=== PATIENT | male | born 1960 | race Caucasian/White ===

== ENCOUNTER 2016-09-14 11:14 | Inpatient (IN) ==
[2016-09-14] MEDS ORDERED: Ipratropium/Albuterol Neb 3 ML IH ONE (11:29)
[2016-09-14] MEDS ORDERED: 0.9 % Sodium Chloride 1,000 ML IVC SCH (11:30)
--- NOTE | 2016-09-14 11:40 | Emergency Department Note ---
Disposition Clinical Impression: Hypoxia, Pulmonary nodule, Bronchitis Chest pain Qualifiers: Chest pain type: unspecified Qualified Code(s): R07.9 - Chest pain, unspecified Disposition: Admitted As Inpatient Condition: Fair General Adult HPI - General Chief complaint: ED Chest Pain Stated complaint: CP/APRIL 72% o2 Time Seen by Provider: 09/14/16 11:16 Source: patient Mode of arrival: ambulatory Limitations: no limitations Nursing Notes Reviewed: Yes Vital Signs Reviewed: Yes - History of Present Illness HPI Narrative: 55-year-old male history of COPD, hypertension, presents for evaluation of chest pain shortness of breath. Patient states that he is on 4 L nasal cannula at home nocturnal. States he does not use oxygen while at work. Does travel to [place] as his daily commute. Note that symptoms started in the past 24 hours. Reports some nausea but no vomiting. Reports constipation or diarrhea. Denies any fevers. Does note a chronic productive cough with no change. Does describe upper abdominal/chest pain. Does have a history of pancreatitis because the pain is different than prior episodes. Patient denies history of alcohol. She has had his colon removed. Denies history of DVTs or PEs. Denies any recent surgeries. Denies history of heart attacks. Denies any recent hospitalizations within the past 3 months. Pain Scale: 7 - Related Data Home Medications Medication Instructions Recorded Confirmed Albuterol Sulfate [Albuterol 2 puff IH Q4HR PRN 07/09/15 09/14/16 Inhaler] Aspirin [Adult Low Dose Aspirin EC] 81 mg PO DAILY 07/09/15 09/14/16 Furosemide [Lasix] 20 mg PO DAILY PRN 07/09/15 09/14/16 Lisinopril [Zestril] 10 mg PO DAILY 07/09/15 09/14/16 Multivit-Min/FA/Lycopen/Lutein 1 tab PO DAILY 07/09/15 09/14/16 [Centrum Silver Tablet] Omeprazole [PriLOSEC] 20 mg PO DAILY 07/09/15 09/14/16 hydroCHLOROthiazide 25 mg PO DAILY 07/09/15 09/14/16 [Hydrochlorothiazide] BuPROPion SR (12 HR) [Wellbutrin 150 mg PO BID 04/05/16 09/14/16 SR] Fluticasone/Salmeterol [Advair 1 each IH BID 04/05/16 09/14/16 250-50 Diskus] Ondansetron HCl [Zofran] 4 mg PO BID PRN MDD qty 14, 7 day 04/05/16 09/14/16 supply Oxygen 2 l NS CONT 04/05/16 09/14/16 Allergies Allergy/AdvReac Type Severity Reaction Status Date / Time ciprofloxacin [From Cipro] Allergy See Verified 07/09/15 10:32 Comments All systems ED: reviewed and negative except as stated. Constitutional: Reports: as per HPI. Denies: fever Eyes: Reports: as per HPI ENT ED: Reports: as per HPI Cardiovascular: Reports: as per HPI, chest pain Respiratory: Reports: as per HPI, cough, dyspnea Gastrointestinal: Reports: as per HPI, abdominal pain, nausea, constipation. Denies: vomiting Genitourinary: Reports: as per HPI Musculoskeletal: Reports: as per HPI Integumentary: Reports: as per HPI Neurological: Reports: as per HPI Psychiatric: Reports: as per HPI Endocrine: Reports: as per HPI Hematological/Lymphatic: Reports: as per HPI Past Medical History - Past Medical History Attestation: Yes The following information was validated with the patient. Medical history: Reports: COPD, hypertension Surgical history: Reports: cholecystectomy Psychiatric history: Reports: no psych history - Social History Smoking Status: Current every day smoker Smokeless Tobacco Status: No Alcohol use: Reports: occasionally Drug use: Reports: none Physical Exam - General Limitations: no limitations General appearance: alert, in no apparent distress - Head Head exam: atraumatic, normocephalic, normal inspection - Eye Eye exam: Present: normal appearance, EOMI. Absent: scleral icterus - ENT ENT exam: normal exam, mucous membranes moist - Neck Neck exam: Present: normal inspection, trachea midline - Chest Chest inspection: Present: normal inspection, symmetric chest wall rise - Respiratory Respiratory exam: Present: wheezes (Bibasilar expiratory, with scattered rhonchi ), accessory muscle use, prolonged expiratory phase. Absent: respiratory distress - Cardiovascular Cardiovascular exam: Present: normal rhythm, tachycardia - Abdominal Exam Abdominal exam: Present: soft, Non-Tender, distention, other (Healed midline scar). Absent: guarding, rebound - Extremities Exam Extremities exam: Present: normal inspection. Absent: pedal edema - Back Exam Back exam: Present: normal inspection. Absent: CVA tenderness (R), CVA tenderness (L) - Neurological Exam Neurological exam: Present: alert, oriented X3 - Skin Skin exam: Present: warm, dry, intact, normal color Course Course Narrative: Patient seen and examined. Patient was noted to be hypoxic with room air sat of 72%. Patient remained hypoxic on 4 L with 88-89%. Patient get a cardiopulmonary evaluation including a chest x-ray, nebs, EKG troponin as well as a d-dimer as the patient is felt to be low risk for [place]. Disposition likely admission. - Reevaluation(s) Reevaluation #1: Patient seen and examined. Patient continues no difficulty in breathing. Patient continues no pain. Is that the pain is worse with leaning forward. Time: 12:42 Reevaluation #2: Patient states that the nitroglycerin did help with his pain. Patient's resting comfortably. Discussed plan with patient bedside. Time: 14:12 Reevaluation #3: Patient is resting comfortably. Spoke with hospitalist regarding admission. Patient will be admitted for further cardiopulmonary monitoring. Patient's 93% on 4 L nasal cannula. Normotensive. Time: 16:03 Vital Signs Temperature 98.7 F 09/14/16 11:26 Pulse Rate 107 09/14/16 11:26 Respiratory Rate 22 09/14/16 11:26 Blood Pressure 149/88 09/14/16 11:26 O2 Sat by Pulse Oximetry 89 09/14/16 11:26 Temperature 99.4 F 09/14/16 18:29 Pulse Rate 106 09/14/16 18:20 Respiratory Rate 20 09/14/16 18:20 Blood Pressure 144/74 09/14/16 18:20 O2 Sat by Pulse Oximetry 90 09/14/16 19:01 Oxygen Delivery Oxygen Delivery Nasal Cannula Medical Decision Making - [facility] Narrative Medical decision making narrative: 55-year-old gentleman presents for evaluation of chest pain short of breath. Patient was noted to be hypoxic. Patient has had an extensive history of COPD. Patient is typically on 4 L nocturnally. Patient was found to be hypoxic. Patient did not improve with initial supplementation. Patient received DuoNeb' s 2. Patient also had a cardiopulmonary evaluation with an EKG which showed no acute changes. Negative troponin. Patient is also complaining of chest pain. Patient's chest pain relieved with nitroglycerin. Patient does not have any recent cardiopulmonary testing. Patient also had a CTA of the chest which showed pulmonary nodules but no acute abnormalities. Possibly pulmonary edema versus bronchitis. Patient also has a mild elevation in white count. Patient was given by mouth Levaquin to cover for any bronchitis symptoms given the severity of his hypoxia. Patient likely has some element of pulmonary hypertension as he states that he does not use oxygen during the day for his job. Patient would likely benefit from inpatient admission with cardiopulmonary evaluation stress testing and echo. Patient is agreeable to plan of care. - Lab Data Lab results reviewed: Yes I reviewed the patient's lab results. Result diagrams: 09/14/16 11:56 09/14/16 11:56 Lab Results 09/14/16 09/14/16 09/14/16 Range/Units 11:56 11:56 11:56 WBC 13.2 H (4.3-11.1) K/mcL RBC 5.07 (4.19-5.50) M/mcL Hgb 13.4 (12.9-16.9) g/dL Hct 45.3 (37.5-50.1) % MCV 89.3 (83.0-100.0) fL MCH 26.4 L (28.0-33.3) pg MCHC 29.6 L (31.6-35.5) g/dL RDW 14.3 (11.5-14.5) % Plt Count 199 (140-400) K/mcL MPV 9.2 L (9.4-12.4) fL Immature Gran % 0.6 (0-4) % Seg Neutrophils % 83.3 % Lymphocytes % 9.2 % Monocytes % 5.5 % Eosinophils % 1.1 % Basophils % 0.3 % Neutrophils # 11.0 H (1.6-8.9) K/mcL Lymphocytes # 1.2 (0.6-4.6) K/mcL Monocytes # 0.7 (0.0-1.3) K/mcL Eosinophils # 0.2 (0.0-0.6) K/mcL Basophils # 0.0 (0.0-0.2) K/mcL D-Dimer (0-500) ng/mLFEU VBG pH (7.32-7.42) pH Units VBG pCO2 (41-51) mmHg VBG pO2 (25-40) mmHg VBG HCO3 (21-27) mEq/L Sodium 137 (136-145) mEq/L Potassium 4.2 (3.5-4.5) mEq/L Chloride 93 L (98-109) mEq/L Carbon Dioxide 39 H (19-29) mEq/L BUN 14 (8-26) mg/dL Creatinine 0.82 (0.72-1.25) mg/dL Est GFR ( Amer) > 60 (> 60) Est GFR (Non-Af Amer) > 60 (> 60) BUN/Creatinine Ratio 17 (6-26) Glucose 225 H (70-99) mg/dL Calculated Osmolality 292 (280-300) Calcium 8.5 L (8.6-10.8) mg/dL Troponin I 0.02 (0-0.03) ng/mL Lipase 55 (8-78) Units/L 09/14/16 09/14/16 Range/Units 11:56 11:56 WBC (4.3-11.1) K/mcL RBC (4.19-5.50) M/mcL Hgb (12.9-16.9) g/dL Hct (37.5-50.1) % MCV (83.0-100.0) fL MCH (28.0-33.3) pg MCHC (31.6-35.5) g/dL RDW (11.5-14.5) % Plt Count (140-400) K/mcL MPV (9.4-12.4) fL Immature Gran % (0-4) % Seg Neutrophils % % Lymphocytes % % Monocytes % % Eosinophils % % Basophils % % Neutrophils # (1.6-8.9) K/mcL Lymphocytes # (0.6-4.6) K/mcL Monocytes # (0.0-1.3) K/mcL Eosinophils # (0.0-0.6) K/mcL Basophils # (0.0-0.2) K/mcL D-Dimer 1571 H (0-500) ng/mLFEU VBG pH 7.35 (7.32-7.42) pH Units VBG pCO2 72 H (41-51) mmHg VBG pO2 66 H (25-40) mmHg VBG HCO3 39.7 H (21-27) mEq/L Sodium (136-145) mEq/L Potassium (3.5-4.5) mEq/L Chloride (98-109) mEq/L Carbon Dioxide (19-29) mEq/L BUN (8-26) mg/dL Creatinine (0.72-1.25) mg/dL Est GFR ( Amer) (> 60) Est GFR (Non-Af Amer) (> 60) BUN/Creatinine Ratio (6-26) Glucose (70-99) mg/dL Calculated Osmolality (280-300) Calcium (8.6-10.8) mg/dL Troponin I (0-0.03) ng/mL Lipase (8-78) Units/L - Radiology Data Radiology results reviewed: Yes I reviewed the patient's radiology results. Chest X-Ray 09/14/16 11:30 IMPRESSION: No acute cardiopulmonary disease Cardiomegaly without edema D/ / Az Ott MD / Az Ott MD Interpreting Provider: Az Ott MD Chest CTA 09/14/16 12:39 IMPRESSION: 1. No findings of pulmonary embolism. 2. 0.5 cm x 0.3 cm solid and groundglass nodules in the right lung. Consider follow-up chest CT in 1 year per the Fleischner Society recommendations for solid pulmonary nodules, as upper lobe location of the solid nodule is considered to be of increased risk. No specific follow-up of the groundglass nodule is recommended. 3. Minimal central bronchial wall thickening potentially related to pulmonary vascular congestion or bronchitis. 4. Mild centrilobular and minimal paraseptal emphysema. 5. Additional incidental findings as above. RECOMMENDATIONS: Fleischner Society guidelines for follow-up and management of incidentally detected pulmonary nodules: Single Solid Nodule: Nodule size less than 6 mm In a high-risk patient, optional CT at 12 months. Radiology 2017 http://pubs.rsna.org/doi/full/10.1148/radiol.[email or web address] Fleischner Society guidelines for follow-up and management of incidentally detected subsolid pulmonary nodules: Solitary ground glass nodule < 6 mm - No routine follow-up. Radiology 2017 http://pubs.rsna.org/doi/full/10.1148/radiol.[email or web address] D/ / Robbin Morrison MD / Robbin Morrison MD Interpreting Provider: Robbin Morrison MD - EKG Data EKG #1 EKG shows normal: sinus rhythm Rate: tachycardia Rhythm: NSR [place]/QRS: normal, RBBB (Incomplete) T wave inversions noted in: v1, v2, v3 Interpretation: no acute changes, nonspecific ST-T wave changes S.B.A.R. - S.B.A.R. Situation: Demographics Background: Presenting Complaint Assessment: Vital Signs, Course and respsone to treatment, Patient/Family Expectation Recommendation: Barrier(s) to disposition, Recommendation based on pending studies, treatments, or consults S.B.A.R. Report Given to: Paula Stephen Collins Repor Time: 16:03 Attestation Statement - Attestation Attestation: I examined this patient and my medical decision-making was reviewed with the COACH MECHANIC/PA/Advanced Practice Nurse/Resident Physician. I agree with the documented findings, disposition and treatment plan as described except to the extent set forth below. 55-year-old male presents ED because of difficulty breathing and chest pain. He has had symptoms evolving for the past several days with cough productive of a clear yellow sputum. Denies fevers. Complains of increasing discomfort in his epigastrium as well as the substernal region. Some of this is worsened by exertion. He was concerned that maybe he had a recurrence of his pancreatitis is having the past. He has history of COPD and is dependent upon home oxygen. However, he is off the oxygen for greater than 12 hours today while he is a work. 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 According to his , he struggles to the day and immediately was back on oxygen when he returns home. He uses albuterol inhalers, without a spacer and without much improvement. He continues smoking a pack of cigarettes per day. No radiation of pain outside of his chest. No associated diaphoresis. Patient appears to be tachypneic, he is hypoxic upon arrival with oxygen saturation of 72% on room air. Oropharynx is clear, mucosa membranes moist. Neck is supple. Chest markedly diminished breath sounds in all lung carmichael with bilateral expiratory wheezes. Cardiac exam regular without rubs or gallops. Chest wall is nontender. Abdomen soft nondistended and nontender. Extremities well-perfused, warm and dry without asymmetric edema. Oxygen saturation improved with supplemental oxygen and sequential DuoNeb treatments. Chest x-ray was negative for acute abdomen. CT of the chest was negative for PE or acute infiltrate. He was slow to improve and continued to require moderate oxygen supplement and he was given supplemental intervention with resolution of his substernal chest discomfort. He will be admitted for further workup of the chest pain as well as ongoing treatment of his COPD exacerbation. The high probability of a clinically significant, sudden or life threatening deterioration of the [cardiopulmonary] system(s) required my full and direct attention, intervention and personal management. The aggregate critical care time was [31] minutes. This time is in addition to time spent performing reported procedures but includes the following: [x] Data Review and interpretation [x] Patient assessment and monitoring of vital signs [x] Documentation [x] Medication orders and management
[2016-09-14 12:02] LABS: VBG HCO3 39.7 mEq/L (21-27); VBG PH 7.35 pH Units (7.32-7.42)
[2016-09-14 12:03] LABS: Basophils % 0.3 %; Eosinophils % 1.1 %; Hematocrit 45.3 % (37.5-50.1); Hemoglobin 13.4 g/dL (12.9-16.9); Immature Granulocytes % 0.6 % (0-4); Lymphocytes % 9.2 %; Mean Corpuscular HGB Conc 29.6 g/dL (31.6-35.5); Mean Corpuscular Hemoglobin 26.4 pg (28.0-33.3); Mean Corpuscular Volume 89.3 fL (83.0-100.0); Mean Platelet Volume 9.2 fL (9.4-12.4); Monocytes % 5.5 %; Platelet Count 199 K/mcL (140-400); Red Blood Count 5.07 M/mcL (4.19-5.50); Red Cell Distribution Width 14.3 % (11.5-14.5); Segmented Neutrophils % 83.3 %
[2016-09-14 12:04] LABS: Eosinophils # 0.2 K/mcL (0.0-0.6); Lymphocytes # 1.2 K/mcL (0.6-4.6); Monocytes # 0.7 K/mcL (0.0-1.3)
[2016-09-14] MEDS ORDERED: 0.9 % Sodium Chloride 500 ML IVC ONE (12:15)
[2016-09-14 12:16] LABS: BUN/Creatinine Ratio 17 (6-26); Blood Urea Nitrogen 14 mg/dL (8-26); Calcium 8.5 mg/dL (8.6-10.8); Carbon Dioxide 39 mEq/L (19-29); Chloride 93 mEq/L (98-109); Glucose 225 mg/dL (70-99); Lipase 55 Units/L (8-78); Osmolality,Calculated 292 (280-300); Potassium 4.2 mEq/L (3.5-4.5); Sodium 137 mEq/L (136-145); eGFR For African Americans > 60 (> 60); eGFR For Non-African Americans > 60 (> 60)
[2016-09-14] MEDS ORDERED: Nitroglycerin 0.4 MG TAB.SUBL SL PRN (12:42)
[2016-09-14] MEDS ORDERED: levoFLOXacin 500 MG TABLET PO ONE (14:12)
[2016-09-14] MEDS ORDERED: Naloxone 0.4 MG/ML INJ IVP PRN (17:58)
[2016-09-14] MEDS ORDERED: Ondansetron ODT 4 MG TAB.RAPDIS SL PRN (17:58)
[2016-09-14] MEDS ORDERED: Acetaminophen 325 MG TABLET PO PRN (17:58)
[2016-09-14] MEDS ORDERED: Furosemide 20 MG TABLET PO PRN (18:01)
[2016-09-14] MEDS ORDERED: methylPREDNISolone 125 MG/2 ML VIAL IVP ONE (18:02)
[2016-09-14] MEDS ORDERED: Albuterol 2.5 MG/3 ML NEBULIZER IH PRN (18:03)
[2016-09-14] MEDS: Nicotine 14 MG PATCH.TD24 TD SCH (18:55)
--- NOTE | 2016-09-14 18:55 | Event Note ---
Date of Encounter: 09/14/16 Time of Encounter: 18:54 55/M Known to have a COPD. Admitted with multiple exacerbations in the past. Active smoker. Admitted with worsening shortness of breath/change in color of sputum. Plan: IV antibiotics. IV steroids. Bronchodilators. I examined this patient independently. I examined this patient and my medical decision-making was reviewed with the VETERINARY MEDICINE TEACHER/PA/Advanced Practice Nurse/Resident Physician. I agree with the documented findings, disposition and treatment plan as described except to the extent set forth below.
--- NOTE | 2016-09-14 20:05 | Internal Med History&Physical ---
Date of Encounter: 09/14/16 Time of Encounter: 20:03 Assessment and Plan (1) Acute exacerbation of chronic obstructive airways disease Current visit: No Status: Acute Presented with increased shortness of breath. CTA shows central bronchial wall thickening, consistent with bronchitis or pulmonary vascular congestion, and emphysema. White blood cell count elevated to 13.2. Diffuse wheezing on exam. 125 mg IV Solu-Medrol 1 40 mg IV Solu-Medrol every 8 hours Levaquin IV piggyback daily DuoNeb treatments 4 times a day Albuterol nebulizer every 2 hours when necessary Titrate oxygen to maintain O2 saturation greater than 90% (2) Acute and chronic respiratory failure Current visit: Yes Status: Acute Secondary to COPD exacerbation. Patient requires oxygen at home, but does not wear during the day while at work, uses 4 L while he is at home and overnight. Patient was 72% on room air on presentation, improved to 93% on 4 L. Venous blood gas revealed elevated PCO2. Titrate oxygen to maintain O2 saturation greater than 90%. Consulted respiratory therapy for BiPAP overnight. DuoNeb treatments 4 times a day Albuterol nebulizer every 2h when necessary Qualifiers: Respiratory failure complication: hypoxia and hypercapnia Qualified Code(s) : J96.21 - Acute and chronic respiratory failure with hypoxia; J96.22 - Acute and chronic respiratory failure with hypercapnia (3) Obstructive sleep apnea Current visit: No Status: Chronic Patient reports he's been diagnosed with Sleep apnea, but does not like to wear a CPAP. Respiratory therapy consulted for Bipap overnight, given patient's hypoxia and hypercapnea. (4) Cigarette smoker Current visit: No Status: Chronic Discussed smoking cessation, patient trying to quit. Offered encouragement. Smoking cessation education ordered. Nicotine patch ordered. (5) Pulmonary nodule Current visit: Yes Status: Acute CT showed 0.5cm x 0.3cm nodules in right lung, with recommendations to follow up with CT scan in 1 year. (6) Chest pain Current visit: Yes Status: Acute Likely secondary to COPD exacerbation. However will rule out for ACS. EKG showed normal sinus rhythm with some T-wave inversions in V1, V2, V3. Troponin was normal at 0.02. Continuous rack puller Serial troponins Qualifiers: Chest pain type: chest pain on breathing Qualified Code(s): R07.1 - Chest pain on breathing (7) DVT prophylaxis Current visit: No Status: Acute Internal Medicine - H&P: HPI Chief complaint: shortness of breath Admitted From: Emergency Dept Plans for Post Hospital Care: Home History of present illness: Mr. Hu is a 55 year old male with hypertension, COPD, sleep apnea, who presents emergency department today with complaints of increasing shortness of breath. Patient's reports that over the last 3 weeks he has had increasing shortness of breath, the patient minimizes this. She wears 4 L of oxygen at home as soon as he walks in the door, but does not wear oxygen during the day when he is at work or on his way to and from work. He started having some dull chest pain yesterday which was coming and going, and worse with deep breaths. Day he noticed his oxygen saturation was well. When he presented to the ER his oxygen saturation was 72% on room air, improved to 93% on 4 L. He was given nitroglycerin which helped his chest pain. He denies any dizziness, lightheadedness, palpitations, fever, chills, sweats, increased coughing, numbness or tingling, nausea or vomiting. Evaluation in emergency department revealed elevated white blood cell count of 13.2, CO2 39, venous blood gas showed elevated PCO2. Troponin was negative at 0.02. D-dimer was elevated at 1571, so a CTA was obtained. The CTA showed no PE, 5 mm x 3 mm nodules in the right lung, central bronchial wall thickening consistent with bronchitis or pulmonary vascular congestion, and emphysema. Chest x-ray showed no acute cardiopulmonary disease, cardiomegaly without edema. EKG showed normal sinus rhythm with T-wave inversions in V1, V2 and V3. On exam, patient alert and oriented, in no acute distress. He had diffuse expiratory wheezes. Heart had regular rate and rhythm. Past Med Surg Social Fam HX - Past Medical History Medical history: COPD, hypertension Psychiatric history: no psych history - Past Surgical History Surgical History: cholecystectomy - Social History Smoking Status: Current every day smoker Packs per day: 1/2 Smokeless Tobacco Status: No Alcohol use: occasionally Drug use: none - Family History Mother Living Status: Hx Family GI Disorders: Yes (GERD) Internal Medicine - H&P: Meds Albuterol Sulfate [Albuterol Inhaler] 2 puff IH Q4HR PRN 07/09/15 [History] Aspirin [Adult Low Dose Aspirin EC] 81 mg PO DAILY 07/09/15 [History] Furosemide [Lasix] 20 mg PO DAILY PRN 07/09/15 [History] Lisinopril [Zestril] 10 mg PO DAILY 07/09/15 [History] Multivit-Min/FA/Lycopen/Lutein [Centrum Silver Tablet] 1 tab PO DAILY 07/09/15 [ History] Omeprazole [PriLOSEC] 20 mg PO DAILY 07/09/15 [History] hydroCHLOROthiazide [Hydrochlorothiazide] 25 mg PO DAILY 07/09/15 [History] BuPROPion SR (12 HR) [Wellbutrin SR] 150 mg PO BID 04/05/16 [History] Fluticasone/Salmeterol [Advair 250-50 Diskus] 1 each IH BID 04/05/16 [History] Ondansetron HCl [Zofran] 4 mg PO BID PRN MDD qty 14, 7 day supply 04/05/16 [ History] Oxygen 2 l NS CONT 04/05/16 [History] Allergies ciprofloxacin [From Cipro] Allergy (Verified 07/09/15 10:32) See Comments All Systems PM: A 10-system review of systems was performed and is negative for pertinent findings except as documented above in the HPI. - Constitutional Constitutional: no chills, no fever(s), no night sweats - EENT Eyes: no change in vision, no discharge, no pain, no photophobia Ears: no ear discharge, no ear pain, no tinnitus Nose, mouth and throat: no dysphagia, no nasal discharge, no neck pain, no sore throat - Cardiovascular Cardiovascular ROS IM: chest pain, dyspnea, dyspnea on exertion, no diaphoresis , no lightheadedness, no palpitations, no syncope - Respiratory Respiratory: dyspnea, dyspnea on exertion, wheezing, no cough, no excessive phlegm production - Gastrointestinal Gastrointestinal: no abdominal pain, no diarrhea, no hematemesis, no hematochezia, no melena, no nausea, no vomiting - Musculoskeletal Musculoskeletal ROS IM: no numbness, no tingling - Integumentary Integumentary IM: no rash, no unusual bruising - Neurological Neurological ROS: no confusion, no convulsions, no focal weakness, no numbness, no tingling, no tremor(s) - Hematologic/Lymphatic Hematologic/Lymphatic: no easy bruising - Constitutional Vitals: Temp Pulse Resp BP Pulse Ox 99.4 F 106 20 144/74 90 09/14/16 18:29 09/14/16 18:20 09/14/16 18:20 09/14/16 18:20 09/14/16 19:01 General appearance: Present: A&O X 3, morbidly obese, pleasant - Head Head exam: Present: atraumatic, normocephalic - Eye Eye exam: Present: PERRL, conjuntiva pink, sclera anicteric Pupils: Present: PERRL - Neck Neck exam general surgery: Present: supple, trachea midline. Absent: lymphadenopathy - Respiratory Respiratory exam: Present: wheezes. Absent: accessory muscle use, rales, rhonchi - Cardiovascular Cardiovascular exam: Present: RRR, +S1, +S2, systolic murmur. Absent: diastolic murmur, gallop, rubs - GI/Abdominal GI/Abdominal exam: Present: normal bowel sounds, soft, no peritoneal signs. Absent: distended, tenderness - Extremities Exam Extremities exam: Present: warm, radial pulses palpable and symetrical. Absent : calf tenderness, cyanotic, pedal edema - Neurological Exam Neurological exam: Present: CN II-XII intact, oriented X3, no focal deficits. Absent: pronater drift, facial droop, speech deficit - Skin Skin exam: Present: dry, intact Internal Med - H&P Results - Labs CBC & Chem 7: 09/14/16 11:56 09/14/16 11:56 Labs: All Lab Results (24 Hours) 09/14/16 09/14/16 09/14/16 Range/Units 11:56 11:56 11:56 WBC 13.2 H (4.3-11.1) K/mcL RBC 5.07 (4.19-5.50) M/mcL Hgb 13.4 (12.9-16.9) g/dL Hct 45.3 (37.5-50.1) % MCV 89.3 (83.0-100.0) fL MCH 26.4 L (28.0-33.3) pg MCHC 29.6 L (31.6-35.5) g/dL RDW 14.3 (11.5-14.5) % Plt Count 199 (140-400) K/mcL MPV 9.2 L (9.4-12.4) fL Immature Gran % 0.6 (0-4) % Seg Neutrophils % 83.3 % Lymphocytes % 9.2 % Monocytes % 5.5 % Eosinophils % 1.1 % Basophils % 0.3 % Neutrophils # 11.0 H (1.6-8.9) K/mcL Lymphocytes # 1.2 (0.6-4.6) K/mcL Monocytes # 0.7 (0.0-1.3) K/mcL Eosinophils # 0.2 (0.0-0.6) K/mcL Basophils # 0.0 (0.0-0.2) K/mcL D-Dimer (0-500) ng/mLFEU VBG pH (7.32-7.42) pH Units VBG pCO2 (41-51) mmHg VBG pO2 (25-40) mmHg VBG HCO3 (21-27) mEq/L Sodium 137 (136-145) mEq/L Potassium 4.2 (3.5-4.5) mEq/L Chloride 93 L (98-109) mEq/L Carbon Dioxide 39 H (19-29) mEq/L BUN 14 (8-26) mg/dL Creatinine 0.82 (0.72-1.25) mg/dL Est GFR ( Amer) > 60 (> 60) Est GFR (Non-Af Amer) > 60 (> 60) BUN/Creatinine Ratio 17 (6-26) Glucose 225 H (70-99) mg/dL Calculated Osmolality 292 (280-300) Calcium 8.5 L (8.6-10.8) mg/dL Troponin I 0.02 (0-0.03) ng/mL Lipase 55 (8-78) Units/L 09/14/16 09/14/16 09/14/16 Range/Units 11:56 11:56 18:27 WBC (4.3-11.1) K/mcL RBC (4.19-5.50) M/mcL Hgb (12.9-16.9) g/dL Hct (37.5-50.1) % MCV (83.0-100.0) fL MCH (28.0-33.3) pg MCHC (31.6-35.5) g/dL RDW (11.5-14.5) % Plt Count (140-400) K/mcL MPV (9.4-12.4) fL Immature Gran % (0-4) % Seg Neutrophils % % Lymphocytes % % Monocytes % % Eosinophils % % Basophils % % Neutrophils # (1.6-8.9) K/mcL Lymphocytes # (0.6-4.6) K/mcL Monocytes # (0.0-1.3) K/mcL Eosinophils # (0.0-0.6) K/mcL Basophils # (0.0-0.2) K/mcL D-Dimer 1571 H (0-500) ng/mLFEU VBG pH 7.35 (7.32-7.42) pH Units VBG pCO2 72 H (41-51) mmHg VBG pO2 66 H (25-40) mmHg VBG HCO3 39.7 H (21-27) mEq/L Sodium (136-145) mEq/L Potassium (3.5-4.5) mEq/L Chloride (98-109) mEq/L Carbon Dioxide (19-29) mEq/L BUN (8-26) mg/dL Creatinine (0.72-1.25) mg/dL Est GFR ( Amer) (> 60) Est GFR (Non-Af Amer) (> 60) BUN/Creatinine Ratio (6-26) Glucose (70-99) mg/dL Calculated Osmolality (280-300) Calcium (8.6-10.8) mg/dL Troponin I 0.02 (0-0.03) ng/mL Lipase (8-78) Units/L - Diagnostic Studies Chest x-ray Additional comments: Chest X-Ray 09/14/16 11:30 IMPRESSION: No acute cardiopulmonary disease Cardiomegaly without edema D/ / Az Ott MD / Az Ott MD Interpreting Provider: Az Ott MD CT scan - chest Additional comments: Chest CTA 09/14/16 12:39 IMPRESSION: 1. No findings of pulmonary embolism. 2. 0.5 cm x 0.3 cm solid and groundglass nodules in the right lung. Consider follow-up chest CT in 1 year per the Fleischner Society recommendations for solid pulmonary nodules, as upper lobe location of the solid nodule is considered to be of increased risk. No specific follow-up of the groundglass nodule is recommended. 3. Minimal central bronchial wall thickening potentially related to pulmonary vascular congestion or bronchitis. 4. Mild centrilobular and minimal paraseptal emphysema. 5. Additional incidental findings as above. RECOMMENDATIONS: Fleischner Society guidelines for follow-up and management of incidentally detected pulmonary nodules: Single Solid Nodule: Nodule size less than 6 mm In a high-risk patient, optional CT at 12 months. Radiology 2017 http://pubs.rsna.org/doi/full/10.1148/radiol.3555166032 Fleischner Society guidelines for follow-up and management of incidentally detected subsolid pulmonary nodules: Solitary ground glass nodule < 6 mm - No routine follow-up. Radiology 2017 http://pubs.rsna.org/doi/full/10.1148/radiol.2048265679 D/ / Robbin Morrison MD / Robbin Morrison MD Interpreting Provider: Robbin Morrison MD - VTE Documentation of Mechanical Device: Graduated compression elastic hosiery
[2016-09-14] MEDS: Ipratropium/Albuterol Neb 3 ML IH SCH ×2 (20:16→21:23)
[2016-09-14] MEDS: BuPROPion SR (12 HR) 150 MG TABLET PO SCH (21:05)
[2016-09-14] MEDS: Budesonide/Formoterol 160/4.5 MDI IH SCH (21:23)
--- NOTE | 2016-09-14 21:25 | Electrocardiograph Report ---
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
[2016-09-15 01:02] LABS: Basophils % 0.1 %; Eosinophils % 0.1 %; Hematocrit 43.1 % (37.5-50.1); Hemoglobin 12.7 g/dL (12.9-16.9); Immature Granulocytes % 0.9 % (0-4); Lymphocytes # 0.5 K/mcL (0.6-4.6); Lymphocytes % 4.2 %; Mean Corpuscular HGB Conc 29.5 g/dL (31.6-35.5); Mean Corpuscular Hemoglobin 26.7 pg (28.0-33.3); Mean Corpuscular Volume 90.7 fL (83.0-100.0); Mean Platelet Volume 9.4 fL (9.4-12.4); Monocytes # 0.1 K/mcL (0.0-1.3); Monocytes % 1.1 %; Neutrophils # 10.6 K/mcL (1.6-8.9); Platelet Count 198 K/mcL (140-400); Red Blood Count 4.75 M/mcL (4.19-5.50); Red Cell Distribution Width 14.4 % (11.5-14.5); Segmented Neutrophils % 93.6 %
[2016-09-15 01:21] LABS: BUN/Creatinine Ratio 13 (6-26); Blood Urea Nitrogen 12 mg/dL (8-26); Calcium 8.7 mg/dL (8.6-10.8); Carbon Dioxide 39 mEq/L (19-29); Chloride 94 mEq/L (98-109); Glucose 292 mg/dL (70-99); Osmolality,Calculated 295 (280-300); Sodium 137 mEq/L (136-145); eGFR For African Americans > 60 (> 60); eGFR For Non-African Americans > 60 (> 60)
[2016-09-15 01:24] LABS: Potassium 5.2 mEq/L (3.5-4.5)
[2016-09-15] MEDS: *HR* Heparin 5,000 UNIT/ML VIAL SQ SCH ×4 (01:30→23:26)
[2016-09-15] MEDS: MethylPREDNISolone 40 MG/ML VIAL IVP SCH ×3 (01:31→17:23)
[2016-09-15] MEDS: Ipratropium/Albuterol Neb 3 ML IH SCH ×4 (04:24→22:29)
[2016-09-15] MEDS: BuPROPion SR (12 HR) 150 MG TABLET PO SCH ×2 (08:18→20:18)
[2016-09-15] MEDS: hydroCHLOROthiazide 25 MG TABLET PO SCH (08:18)
[2016-09-15] MEDS: Nicotine 14 MG PATCH.TD24 TD SCH (08:18)
[2016-09-15] MEDS: Aspirin Enteric Coated 81 MG Tablet PO SCH (08:18)
[2016-09-15] MEDS ORDERED: Levofloxacin 750 MG/150 ML 750 MG/150 ML BAG IVPB SCH (09:00)
[2016-09-15 09:08] LABS: Hemoglobin A1C 6.7 %
[2016-09-15] MEDS ORDERED: D5% in Water 1,000 ML IVC PRN (09:44)
[2016-09-15] MEDS ORDERED: *HR* Dextrose 50 % in Water (Syg) 50 ML SYRINGE IVP PRN (09:44)
[2016-09-15] MEDS ORDERED: Dextrose Gel 15 GM PO PRN ×2 (09:44)
--- NOTE | 2016-09-15 09:44 | Internal Med Progress Note ---
Date of Encounter: 09/15/16 Time of Encounter: 09:42 - Assessment and plan (1) Acute respiratory failure with hypoxia and hypercapnia Current Visit: No Status: Acute Assessment and plan: Secondary to COPD exacerbation continue IV steroids, changed to Solumedrol 40mg IV q12h continue bronchodilator support O2 supplementation monitor O2 saturation, goal O2 sat: 89-92% bipap support continue Levofloxacin (2) Acute exacerbation of chronic obstructive airways disease Current Visit: No Status: Acute Assessment and plan: as listed above (3) Diabetes mellitus Current Visit: Yes Status: Acute Assessment and plan: -HbA1C: 6.7, increased from 6.6 from 06/2015 not on any antihyperglycemics as per patient he did not know he had Diabetes Will provide with Diabetic education start sliding scale insulin algorithm monitor FS and BG will likely be discharged on oral antihyperglycemic agent Qualifiers: Diabetes mellitus type: type 2 Diabetes mellitus complication status: with unspecified complications Diabetes mellitus manager roofing insulin use: without half-way use Qualified Code(s): E11.8 - Type 2 diabetes mellitus with unspecified complications (4) Obstructive sleep apnea Current Visit: No Status: Chronic Assessment and plan: continue bipap support (5) Obesity (BMI 30-39.9) Current Visit: No Status: Chronic (6) DVT prophylaxis Current Visit: No Status: Acute Assessment and plan: Heparin SQ (7) Cigarette smoker Current Visit: No Status: Chronic Assessment and plan: smoking cessation counseling provided patient trying to quit, states he is down to 6 cigs/day nicotine replacement therapy provided (8) Pulmonary nodule Current Visit: Yes Status: Chronic Assessment and plan: f/u in 1year recommended - Subjective Interval history: Patient seen and examined at bedside. Resting in bed and reports of feeling better. Reports of being an every day smoker and trying to quit. Also states that he did not know that he had diabetes. - Constitutional Vitals: Temp Pulse Resp BP Pulse Ox 97.6 F 80 18 157/84 93 09/15/16 06:40 09/15/16 06:40 09/15/16 06:40 09/15/16 06:40 09/15/16 08:26 General appearance: Present: A&O X 3, morbidly obese, pleasant, no acute distress - Head Head exam: Present: atraumatic, normocephalic - Eye Eye exam: Present: normal appearance, conjuntiva pink, sclera anicteric - Respiratory Respiratory exam: Present: decreased breath sounds, wheezes (mild bilateral expiratory wheezing ). Absent: respiratory distress - Cardiovascular Cardiovascular exam: Present: RRR, +S1, +S2. Absent: diastolic murmur, gallop, rubs, systolic murmur - GI/Abdominal GI/Abdominal exam: Present: distended (obese), normal bowel sounds, soft. Absent: tenderness - Extremities Exam Extremities exam: Present: warm, radial pulses palpable and symetrical. Absent : calf tenderness, pedal edema - Neurological Exam Neurological exam: Present: alert, oriented X3 Internal Medicine: Result - Labs CBC & Chem 7: 09/15/16 00:47 09/15/16 00:47 Labs: Short CBC 09/15/16 Range/Units 00:47 WBC 11.3 H (4.3-11.1) K/mcL Hgb 12.7 L (12.9-16.9) g/dL Hct 43.1 (37.5-50.1) % Plt Count 198 (140-400) K/mcL Neutrophils # 10.6 H (1.6-8.9) K/mcL BMP 09/15/16 00:47 Sodium 137 Potassium 5.2 H D Chloride 94 L Carbon Dioxide 39 H BUN 12 Creatinine 0.93 Glucose 292 H Calcium 8.7 Cardiac Enzymes 09/14/16 09/15/16 Range/Units 18:27 00:47 Troponin I 0.02 0.02 (0-0.03) ng/mL - ABG Interpretation ABG results: PT/INR, D-dimer D-Dimer 1571 ng/mLFEU (0-500) H 09/14/16 11:56 - VTE Documentation of Mechanical Device: Graduated compression elastic hosiery Consult Discharge Plan - Plan Referrals: Ernestina Ag, CODING AND REIMBURSEMENT SPECIALIST [Primary Care Provider] - (Web requested on 09-14-16)
[2016-09-15] MEDS: Budesonide/Formoterol 160/4.5 MDI IH SCH ×2 (10:51→22:29)
[2016-09-15] MEDS: Insulin LISPRO 300 UNITS/3 ML VIAL SQ SCH ×3 (11:31→20:18)
[2016-09-16] MEDS: Ipratropium/Albuterol Neb 3 ML IH SCH ×4 (04:14→22:55)
[2016-09-16] MEDS: MethylPREDNISolone 40 MG/ML VIAL IVP SCH ×2 (05:58→16:55)
[2016-09-16 06:55] LABS: Basophils % 0.1 %; Hematocrit 43.6 % (37.5-50.1); Hemoglobin 12.9 g/dL (12.9-16.9); Immature Granulocytes % 0.8 % (0-4); Lymphocytes # 1.5 K/mcL (0.6-4.6); Lymphocytes % 9.4 %; Mean Corpuscular HGB Conc 29.6 g/dL (31.6-35.5); Mean Corpuscular Hemoglobin 25.7 pg (28.0-33.3); Mean Platelet Volume 9.4 fL (9.4-12.4); Monocytes # 0.8 K/mcL (0.0-1.3); Monocytes % 5.1 %; Neutrophils # 13.5 K/mcL (1.6-8.9); Platelet Count 234 K/mcL (140-400); Red Blood Count 5.01 M/mcL (4.19-5.50); Red Cell Distribution Width 14.1 % (11.5-14.5); Segmented Neutrophils % 84.6 %
[2016-09-16 07:08] LABS: BUN/Creatinine Ratio 21 (6-26); Blood Urea Nitrogen 16 mg/dL (8-26); Calcium 9.1 mg/dL (8.6-10.8); Carbon Dioxide 37 mEq/L (19-29); Chloride 95 mEq/L (98-109); Glucose 209 mg/dL (70-99); Osmolality,Calculated 291 (280-300); Phosphorous 2.4 mg/dL (2.3-4.7); Sodium 137 mEq/L (136-145); eGFR For African Americans > 60 (> 60); eGFR For Non-African Americans > 60 (> 60)
[2016-09-16 07:15] LABS: Magnesium 2.2 mg/dL (1.6-2.6)
[2016-09-16] MEDS: Insulin LISPRO 300 UNITS/3 ML VIAL SQ SCH ×4 (08:12→21:01)
[2016-09-16] MEDS: *HR* Heparin 5,000 UNIT/ML VIAL SQ SCH ×3 (08:17→23:38)
[2016-09-16] MEDS: Aspirin Enteric Coated 81 MG Tablet PO SCH (08:19)
[2016-09-16] MEDS: BuPROPion SR (12 HR) 150 MG TABLET PO SCH ×2 (08:19→21:00)
[2016-09-16] MEDS: hydroCHLOROthiazide 25 MG TABLET PO SCH (08:19)
[2016-09-16] MEDS: Nicotine 14 MG PATCH.TD24 TD SCH (08:20)
[2016-09-16] MEDS: Levofloxacin 500 MG/100 ML 500 MG/100 ML BAG IVPB SCH (08:21)
[2016-09-16] MEDS: Insulin DETEMIR 100 UNIT/ML X5UNITS SQ SCH (10:43)
[2016-09-16] MEDS: Budesonide/Formoterol 160/4.5 MDI IH SCH ×2 (10:54→22:55)
--- NOTE | 2016-09-16 13:15 | Internal Med Progress Note ---
Date of Encounter: 09/16/16 Time of Encounter: 13:13 - Assessment and plan (1) Acute respiratory failure with hypoxia and hypercapnia Current Visit: No Status: Acute Assessment and plan: Secondary to COPD exacerbation continue IV steroids, continue Solumedrol 40mg IV q12h continue bronchodilator support O2 supplementation monitor O2 saturation, goal O2 sat: 89-92% bipap support continue Levofloxacin leukocytosis secondary to steroid therapy (2) Acute exacerbation of chronic obstructive airways disease Current Visit: No Status: Acute Assessment and plan: as listed above (3) Diabetes mellitus Current Visit: Yes Status: Acute Assessment and plan: -HbA1C: 6.7, increased from 6.6 from 06/2015 not on any antihyperglycemics as per patient he did not know he had Diabetes Will provide with Diabetic education continue sliding scale insulin algorithm worsened hyperglycemia likely secondary to steroid therapy will add Levemir 10units sq daily monitor FS and BG will likely be discharged on oral antihyperglycemic agent Qualifiers: Diabetes mellitus type: type 2 Diabetes mellitus complication status: with unspecified complications Diabetes mellitus residential insulin use: without dedicated intermodal truck driver use Qualified Code(s): E11.8 - Type 2 diabetes mellitus with unspecified complications (4) Obstructive sleep apnea Current Visit: No Status: Chronic Assessment and plan: continue bipap support (5) Obesity (BMI 30-39.9) Current Visit: No Status: Chronic (6) DVT prophylaxis Current Visit: No Status: Acute Assessment and plan: Heparin SQ (7) Cigarette smoker Current Visit: No Status: Chronic Assessment and plan: smoking cessation counseling provided patient trying to quit, states he is down to 6 cigs/day nicotine replacement therapy provided (8) Pulmonary nodule Current Visit: Yes Status: Chronic Assessment and plan: f/u in 1year recommended - Subjective Interval history: Patient seen and examined at bedside. Resting in bed and reports of feeling better. Currently saturating well on 3L NC, noted to require 5LNC this morning noted to be hyperglycemic, will add basal coverage. - Constitutional Vitals: Temp Pulse Resp BP Pulse Ox 97.6 F 76 18 134/70 97 09/16/16 11:12 09/16/16 11:12 09/16/16 11:12 09/16/16 11:12 09/16/16 11:12 General appearance: Present: cooperative, A&O X 3, morbidly obese, pleasant, no acute distress - Head Head exam: Present: atraumatic, normocephalic - Eye Eye exam: Present: normal appearance, conjuntiva pink, sclera anicteric - Respiratory Respiratory exam: Absent: respiratory distress (equal air entry bilaterally), wheezes - Cardiovascular Cardiovascular exam: Present: RRR, +S1, +S2. Absent: diastolic murmur, gallop, rubs, systolic murmur - GI/Abdominal GI/Abdominal exam: Present: distended (obese), normal bowel sounds, soft, no peritoneal signs. Absent: tenderness - Extremities Exam Extremities exam: Present: warm, radial pulses palpable and symetrical. Absent : calf tenderness, cyanotic, pedal edema - Neurological Exam Neurological exam: Present: alert, oriented X3 - Psychiatric Psychiatric exam: Present: normal affect, normal mood Internal Medicine: Result - Labs CBC & Chem 7: 09/16/16 06:37 09/16/16 06:37 Labs: Short CBC 09/16/16 Range/Units 06:37 WBC 16.0 H (4.3-11.1) K/mcL Hgb 12.9 (12.9-16.9) g/dL Hct 43.6 (37.5-50.1) % Plt Count 234 (140-400) K/mcL Neutrophils # 13.5 H (1.6-8.9) K/mcL BMP 09/16/16 06:37 Sodium 137 Potassium 5.0 H Chloride 95 L Carbon Dioxide 37 H BUN 16 Creatinine 0.78 Glucose 209 H Calcium 9.1 - ABG Interpretation ABG results: PT/INR, D-dimer D-Dimer 1571 ng/mLFEU (0-500) H 09/14/16 11:56 - VTE Documentation of Mechanical Device: Graduated compression elastic hosiery Consult Discharge Plan - Plan Referrals: Ernestina Ag, GRIDCAP MACHINE OPERATOR [Primary Care Provider] - (Web requested on 09-14-16)
[2016-09-17] MEDS: Ipratropium/Albuterol Neb 3 ML IH SCH ×4 (04:02→22:28)
[2016-09-17 05:07] LABS: Basophils % 0.1 %; Hematocrit 43.1 % (37.5-50.1); Hemoglobin 13.1 g/dL (12.9-16.9); Immature Granulocytes % 0.6 % (0-4); Lymphocytes # 1.4 K/mcL (0.6-4.6); Lymphocytes % 9.9 %; Mean Corpuscular HGB Conc 30.4 g/dL (31.6-35.5); Mean Corpuscular Hemoglobin 26.2 pg (28.0-33.3); Mean Corpuscular Volume 86.2 fL (83.0-100.0); Mean Platelet Volume 9.3 fL (9.4-12.4); Monocytes # 0.6 K/mcL (0.0-1.3); Monocytes % 4.3 %; Neutrophils # 11.7 K/mcL (1.6-8.9); Platelet Count 244 K/mcL (140-400); Red Cell Distribution Width 14.3 % (11.5-14.5); Segmented Neutrophils % 85.1 %
[2016-09-17 05:19] LABS: BUN/Creatinine Ratio 22 (6-26); Blood Urea Nitrogen 19 mg/dL (8-26); Calcium 8.9 mg/dL (8.6-10.8); Carbon Dioxide 39 mEq/L (19-29); Chloride 92 mEq/L (98-109); Glucose 254 mg/dL (70-99); Magnesium 1.9 mg/dL (1.6-2.6); Osmolality,Calculated 289 (280-300); Phosphorous 3.6 mg/dL (2.3-4.7); Potassium 4.4 mEq/L (3.5-4.5); Sodium 134 mEq/L (136-145); eGFR For African Americans > 60 (> 60); eGFR For Non-African Americans > 60 (> 60)
[2016-09-17] MEDS: MethylPREDNISolone 40 MG/ML VIAL IVP SCH ×2 (06:06→17:25)
[2016-09-17] MEDS: Nicotine 14 MG PATCH.TD24 TD SCH (09:03)
[2016-09-17] MEDS: Aspirin Enteric Coated 81 MG Tablet PO SCH (09:05)
[2016-09-17] MEDS: hydroCHLOROthiazide 25 MG TABLET PO SCH (09:05)
[2016-09-17] MEDS: *HR* Heparin 5,000 UNIT/ML VIAL SQ SCH ×3 (09:06→23:31)
[2016-09-17] MEDS: Insulin DETEMIR 100 UNIT/ML X5UNITS SQ SCH (09:07)
[2016-09-17] MEDS: Insulin LISPRO 300 UNITS/3 ML VIAL SQ SCH ×4 (09:08→21:37)
[2016-09-17] MEDS: Levofloxacin 500 MG/100 ML 500 MG/100 ML BAG IVPB SCH (09:09)
[2016-09-17] MEDS: BuPROPion SR (12 HR) 150 MG TABLET PO SCH ×2 (09:09→21:37)
[2016-09-17] MEDS: Budesonide/Formoterol 160/4.5 MDI IH SCH ×2 (10:55→22:28)
--- NOTE | 2016-09-17 12:28 | Internal Med Progress Note ---
Date of Encounter: 09/17/16 Time of Encounter: 12:26 - Assessment and plan (1) Acute respiratory failure with hypoxia and hypercapnia Current Visit: No Status: Acute Assessment and plan: Secondary to COPD exacerbation continue IV steroids, continue Solumedrol 40mg IV q12h. Will start Prednisone 40mg PO qd in am to complete therapy for 7 days. continue bronchodilator support O2 supplementation monitor O2 saturation, goal O2 sat: 89-92% bipap support continue Levofloxacin leukocytosis secondary to steroid therapy Likely d/c in am (2) Acute exacerbation of chronic obstructive airways disease Current Visit: No Status: Acute Assessment and plan: as listed above (3) Diabetes mellitus Current Visit: Yes Status: Acute Assessment and plan: -HbA1C: 6.7, increased from 6.6 from 06/2015 not on any antihyperglycemics as per patient he did not know he had Diabetes Will provide with Diabetic education continue sliding scale insulin algorithm worsened hyperglycemia likely secondary to steroid therapy increased Levemir to 20units sq daily monitor FS and BG will likely be discharged on oral antihyperglycemic agent Qualifiers: Diabetes mellitus type: type 2 Diabetes mellitus complication status: with unspecified complications Diabetes mellitus senior living insulin use: without environmental research project manager use Qualified Code(s): E11.8 - Type 2 diabetes mellitus with unspecified complications (4) Obstructive sleep apnea Current Visit: No Status: Chronic Assessment and plan: continue bipap support (5) Obesity (BMI 30-39.9) Current Visit: No Status: Chronic (6) DVT prophylaxis Current Visit: No Status: Acute Assessment and plan: Heparin SQ (7) Cigarette smoker Current Visit: No Status: Chronic Assessment and plan: smoking cessation counseling provided patient trying to quit, states he is down to 6 cigs/day nicotine replacement therapy provided (8) Pulmonary nodule Current Visit: Yes Status: Chronic Assessment and plan: f/u in 1year recommended - Subjective Interval history: Patient seen and examined at bedside. Reports of feeling significantly better. Tolerating bipap support well. States he has bipap at home but was not using it prior to hospitalization. Noted to remain hyperglycemic. Will adjust insulin dosing. No overnight issues reported. - Constitutional Vitals: Temp Pulse Resp BP Pulse Ox 97.9 F 76 18 146/88 97 09/17/16 11:26 09/17/16 11:26 09/17/16 11:26 09/17/16 11:26 09/17/16 11:26 General appearance: Present: cooperative, A&O X 3, morbidly obese, pleasant, no acute distress - Head Head exam: Present: atraumatic, normocephalic - Eye Eye exam: Present: normal appearance, conjuntiva pink, sclera anicteric - Respiratory Respiratory exam: Absent: respiratory distress, wheezes - Cardiovascular Cardiovascular exam: Present: RRR, +S1, +S2. Absent: diastolic murmur, gallop, rubs, systolic murmur - GI/Abdominal GI/Abdominal exam: Present: normal bowel sounds, soft, no peritoneal signs. Absent: distended, tenderness - Extremities Exam Extremities exam: Present: warm, radial pulses palpable and symetrical. Absent : calf tenderness, pedal edema - Neurological Exam Neurological exam: Present: alert, oriented X3 - Psychiatric Psychiatric exam: Present: normal affect, normal mood Internal Medicine: Result - Labs CBC & Chem 7: 09/17/16 04:53 09/17/16 04:53 Labs: Short CBC 09/17/16 Range/Units 04:53 WBC 13.7 H (4.3-11.1) K/mcL Hgb 13.1 (12.9-16.9) g/dL Hct 43.1 (37.5-50.1) % Plt Count 244 (140-400) K/mcL Neutrophils # 11.7 H (1.6-8.9) K/mcL BMP 09/17/16 04:53 Sodium 134 L Potassium 4.4 Chloride 92 L Carbon Dioxide 39 H BUN 19 Creatinine 0.85 Glucose 254 H Calcium 8.9 - ABG Interpretation ABG results: PT/INR, D-dimer D-Dimer 1571 ng/mLFEU (0-500) H 09/14/16 11:56 - VTE Documentation of Mechanical Device: Graduated compression elastic hosiery Consult Discharge Plan - Plan Referrals: Ernestina Ag, PASSENGER REPRESENTATIVE [Primary Care Provider] - (Web requested on 09-14-16)
[2016-09-17] MEDS ORDERED: Insulin DETEMIR 100 UNIT/ML X5UNITS SQ ONE (18:00)
[2016-09-18] MEDS: Ipratropium/Albuterol Neb 3 ML IH SCH ×2 (04:29→10:54)
[2016-09-18 06:24] LABS: Basophils % 0.1 %; Eosinophils % 0.1 %; Hematocrit 47.2 % (37.5-50.1); Immature Granulocytes % 0.4 % (0-4); Lymphocytes # 1.5 K/mcL (0.6-4.6); Lymphocytes % 11.5 %; Mean Corpuscular HGB Conc 29.7 g/dL (31.6-35.5); Mean Corpuscular Hemoglobin 25.4 pg (28.0-33.3); Mean Corpuscular Volume 85.5 fL (83.0-100.0); Mean Platelet Volume 9.3 fL (9.4-12.4); Monocytes # 0.6 K/mcL (0.0-1.3); Monocytes % 4.9 %; Neutrophils # 10.6 K/mcL (1.6-8.9); Platelet Count 253 K/mcL (140-400); Red Blood Count 5.52 M/mcL (4.19-5.50); Red Cell Distribution Width 14.3 % (11.5-14.5)
[2016-09-18 07:08] LABS: BUN/Creatinine Ratio 21 (6-26); Blood Urea Nitrogen 20 mg/dL (8-26); Calcium 9.3 mg/dL (8.6-10.8); Carbon Dioxide 37 mEq/L (19-29); Chloride 92 mEq/L (98-109); Glucose 322 mg/dL (70-99); Osmolality,Calculated 297 (280-300); Phosphorous 3.5 mg/dL (2.3-4.7); Potassium 4.7 mEq/L (3.5-4.5); Sodium 136 mEq/L (136-145); eGFR For African Americans > 60 (> 60); eGFR For Non-African Americans > 60 (> 60)
[2016-09-18] MEDS: Insulin LISPRO 300 UNITS/3 ML VIAL SQ SCH ×2 (07:52→12:00)
[2016-09-18] MEDS: *HR* Heparin 5,000 UNIT/ML VIAL SQ SCH (07:52)
[2016-09-18] MEDS: hydroCHLOROthiazide 25 MG TABLET PO SCH (08:00)
[2016-09-18] MEDS: Aspirin Enteric Coated 81 MG Tablet PO SCH (08:00)
[2016-09-18] MEDS: BuPROPion SR (12 HR) 150 MG TABLET PO SCH (08:00)
[2016-09-18] MEDS: Levofloxacin 500 MG/100 ML 500 MG/100 ML BAG IVPB SCH (08:00)
[2016-09-18] MEDS: Insulin DETEMIR 100 UNIT/ML X5UNITS SQ SCH (08:00)
[2016-09-18] MEDS: Nicotine 14 MG PATCH.TD24 TD SCH (08:01)
[2016-09-18] MEDS ORDERED: predniSONE 20 MG TABLET PO SCH (09:00)
[2016-09-18 10:50] VITALS: BP 135/89
[2016-09-18] MEDS: Budesonide/Formoterol 160/4.5 MDI IH SCH (10:54)
--- NOTE | 2016-09-18 11:21 | Discharge Summary ---
Date of Encounter: 09/18/16 Time of Encounter: 11:17 - Discharge Diagnosis (1) Acute respiratory failure with hypoxia and hypercapnia Priority: Primary Status: Acute (2) Acute exacerbation of chronic obstructive airways disease Priority: Primary Status: Acute (3) Diabetes mellitus Priority: Secondary Status: Acute Qualifiers: Diabetes mellitus type: type 2 Diabetes mellitus complication status: with unspecified complications Diabetes mellitus technician terminal and repeater insulin use: without technician terminal and repeater use Qualified Code(s): E11.8 - Type 2 diabetes mellitus with unspecified complications (4) Obstructive sleep apnea Priority: Secondary Status: Chronic (5) Obesity (BMI 30-39.9) Priority: Secondary Status: Chronic (6) DVT prophylaxis Priority: Secondary Status: Acute (7) Cigarette smoker Priority: Secondary Status: Chronic (8) Pulmonary nodule Priority: Secondary Status: Chronic - Discharge Medications Prescriptions: metFORMIN [Glucophage] 500 mg PO BIDWM #60 tablet predniSONE [PredniSONE] 40 mg PO DAILY #6 tablet Home Medications: Albuterol Sulfate [Albuterol Inhaler] 2 puff IH Q4HR PRN 07/09/15 [History] Aspirin [Adult Low Dose Aspirin EC] 81 mg PO DAILY 07/09/15 [History] Furosemide [Lasix] 20 mg PO DAILY PRN 07/09/15 [History] Lisinopril [Zestril] 10 mg PO DAILY 07/09/15 [History] Multivit-Min/FA/Lycopen/Lutein [Centrum Silver Tablet] 1 tab PO DAILY 07/09/15 [ History] Omeprazole [PriLOSEC] 20 mg PO DAILY 07/09/15 [History] hydroCHLOROthiazide [Hydrochlorothiazide] 25 mg PO DAILY 07/09/15 [History] BuPROPion SR (12 HR) [Wellbutrin SR] 150 mg PO BID 04/05/16 [History] Fluticasone/Salmeterol [Advair 250-50 Diskus] 1 each IH BID 04/05/16 [History] Ondansetron HCl [Zofran] 4 mg PO BID PRN MDD qty 14, 7 day supply 04/05/16 [ History] Oxygen 2 l NS CONT 04/05/16 [History] metFORMIN [Glucophage] 500 mg PO BIDWM #60 tablet 09/18/16 [Rx] predniSONE [PredniSONE] 40 mg PO DAILY #6 tablet 09/18/16 [Rx] Allergies/Adverse Reactions: Allergies ciprofloxacin [From Cipro] Allergy (Verified 07/09/15 10:32) See Comments Date of admission: 09/14/16 17:58 Primary care physician: Ernestina Ag CNP Consults: 09/15/16 09:43 Consult to Nutrition [CONS] Routine Comment: new diagnosis DM Consulting Provider: NUTRITION Reason for Dietary Consult: Diet Education 09/17/16 17:06 Consult to Mortgage Specialist [CONS] Routine Comment: Reason for Consult: newly diagnosed DM Discharging clinician: Abigail Urbina Anticipated date of discharge: 09/18/16 - Patient Status Disposition: Home, Self-Care Condition: Good Functional capacity at discharge: independent ambulation Overall status at discharge: patient is back to baseline - Discharge Instructions Instructions: How to Check Your Blood Sugar (DC), Diabetes Mellitus Type 2 in Adults (DC), Meal Planning with Diabetes Exchanges (DC) Follow Up With: Ernestina Ag CNP [Primary Care Provider] - 09/25/16 3:00 pm (Web requested on 09-14-16) Additional Instructions: Please follow up with your primary care physician within one week after your discharge from the hospital. Please continue oral steroids as prescribed. Please closely monitor your blood glucose at home. Check your fingerstick glucose four times a day (fasting, once premeal, once two hours after meals, at bedtime). Keep a log of these numbers and take it with you to your appointment with your primary care physician. Your diabetes medications will be adjusted as per these readings. Metforming 500mg twice a day has been added to your home medications. Please take this medication as prescribed. If you are consistently noted to have elevated blood glucose (above 300), please seek medical help. Resume all your other home medications as prescribed by your primary care physician. - Diet and Activity Activity: resume usual activities as tolerated, wear oxygen at all times Diet: diabetic diet, low salt diet Hospital course: Mr. Hu is a 55 year old male with PMH of HTN, COPD on LTOT, USHA on bipap who was admitted for COPD exacerbation and was found to have DM. He was started on systemic steroids and bronchodilator support. He was noted to have HbA1C of 6.7. He was noted to be hyperglycemic throughout the course of his admission secondary to steroid therapy. Diabetic education was provided and patient demonstrated understanding on how to check his fingerstick glucose at home. His respiratory status is at baseline. He will be discharged to home on oral steroids and Metformin. He is to follow up with his primary care physician after discharge. Pt demonstrates understanding of his diagnosis and agrees with the discharge and plan. - Time Spent with Patient Total time spent providing and/or coordinating discharge services: Less than 30 minutes - Constitutional Vitals: Temp Pulse Resp BP Pulse Ox 97.2 F L 88 18 135/89 96 09/18/16 10:45 09/18/16 10:45 09/18/16 10:56 09/18/16 10:45 09/18/16 10:56 General appearance: Present: cooperative, A&O X 3, morbidly obese, pleasant, no acute distress - Head Head exam: Present: atraumatic, normocephalic - Eye Eye exam: Present: conjuntiva pink, sclera anicteric - Respiratory Respiratory exam: Absent: respiratory distress, wheezes - Cardiovascular Cardiovascular exam: Present: RRR, +S1, +S2. Absent: diastolic murmur, gallop, rubs, systolic murmur - GI/Abdominal GI/Abdominal exam: Present: normal bowel sounds, soft, no peritoneal signs. Absent: distended, tenderness - Extremities Exam Extremities exam: Present: warm, radial pulses palpable and symetrical. Absent : calf tenderness, pedal edema - Neurological Exam Neurological exam: Present: alert, oriented X3 - Psychiatric Psychiatric exam: Present: normal affect, normal mood - VTE Documentation of Mechanical Device: Graduated compression elastic hosiery
== END 2016-09-18 15:21 | disposition home or self-care (01) | DRG 190 ==
LOC: 2ANU 11:14 → EMEROO 11:14 → 2ANU 18:07
PROVIDERS: ADMIT Nurse Practitioner Family; ATTEND Internal Medicine

== ENCOUNTER 2021-09-09 16:09 | Inpatient (IN) ==
[2021-09-09 17:59] LABS: Basophils # 0.1 K/mcL (0.0-0.2); Basophils % 0.4 %; Eosinophils # 0.3 K/mcL (0.0-0.6); Eosinophils % 2.4 %; Hematocrit 45.8 % (37.5-50.1); Hemoglobin 14.1 g/dL (12.9-16.9); Immature Granulocytes % 0.6 % (0-4); Lymphocytes # 1.8 K/mcL (0.6-4.6); Lymphocytes % 13.3 %; Mean Corpuscular HGB Conc 30.8 g/dL (31.6-35.5); Mean Corpuscular Hemoglobin 29.6 pg (28.0-33.3); Mean Corpuscular Volume 96.2 fL (83.0-100.0); Mean Platelet Volume 9.5 fL (9.4-12.4); Monocytes # 0.7 K/mcL (0.0-1.3); Neutrophils # 10.3 K/mcL (1.6-8.9); Platelet Count 280 K/mcL (140-400); Red Blood Count 4.76 M/mcL (4.19-5.50); Red Cell Distribution Width 12.4 % (11.5-14.5); Segmented Neutrophils % 78.3 %; White Blood Count 13.1 K/mcL (4.3-11.1)
[2021-09-09 18:21] LABS: BUN/Creatinine Ratio 23 (6-26); Blood Urea Nitrogen 17 mg/dL (8-23); Calcium 8.8 mg/dL (8.6-10.3); Carbon Dioxide 39 mEq/L (23-29); Chloride 93 mEq/L (98-107); Glucose 168 mg/dL (70-105); Osmolality,Calculated 287 (280-300); Potassium 4.3 mEq/L (3.5-5.1); Sodium 136 mEq/L (136-145); Troponin I < 0.03 ng/mL (< 0.04); eGFR For African Americans > 60 (> 60); eGFR For Non-African Americans > 60 (> 60)
[2021-09-09] MEDS ORDERED: Ipratropium/Albuterol Neb 3 ML IH ONE (18:31)
[2021-09-09 18:47] LABS: Adenovirus Not Detected (Not Detect); Bordetella Pertussis Not Detected (Not Detect); Chlamydophila pneumoniae Not Detected (Not Detect); Coronavirus 229E Not Detected (Not Detect); Coronavirus HKU1 Not Detected (Not Detect); Coronavirus NL63 Not Detected (Not Detect); Coronavirus OC43 Not Detected (Not Detect); Human Metapneumovirus Not Detected (Not Detect); Human Rhinovirus/Enterovirus DETECTED (Not Detect); Influenza A Subtype 2009 H1 Not Detected (Not Detect); Influenza B Not Detected (Not Detect); Mycoplasma pneumoniae Not Detected (Not Detect); Parainfluenza Virus 1 Not Detected (Not Detect); Parainfluenza Virus 2 Not Detected (Not Detect); Parainfluenza Virus 3 Not Detected (Not Detect); Parainfluenza Virus 4 Not Detected (Not Detect); Respiratory Syncytial Virus Not Detected (Not Detect); SARS-CoV-2 Not Detected (Not Detect)
[2021-09-09] MEDS ORDERED: methylPREDNISolone 125 MG/2 ML VIAL IVP ONE (19:33)
[2021-09-09] MEDS ORDERED: Ondansetron ODT 4 MG TAB.RAPDIS SL PRN (20:45)
[2021-09-09] MEDS ORDERED: Melatonin 3 MG TABLET PO PRN (20:45)
[2021-09-09] MEDS ORDERED: Naloxone 0.4 MG/ML INJ IVP PRN (20:45)
[2021-09-09] MEDS: Gabapentin 300 MG CAPSULE PO SCH (21:18)
[2021-09-09] MEDS: Furosemide 40 MG TABLET PO SCH (21:18)
[2021-09-09] MEDS: Ipratropium/Albuterol Neb 3 ML IH SCH (22:35)
[2021-09-09] MEDS ORDERED: Insulin Human Regular 10 UNIT in 0.9 % Sodium Chloride 10 ML IV ONE (22:52)
[2021-09-09] MEDS ORDERED: Dextrose Gel 15 GM/37.5 ML TUBE PO PRN ×2 (22:58)
[2021-09-09] MEDS ORDERED: *HR* Dextrose 50 % in Water (Syg) 50 ML SYRINGE IVP PRN (22:58)
[2021-09-09] MEDS ORDERED: D5% in Water 1,000 ML IVC PRN (22:58)
[2021-09-10 01:51] LABS: Basophils % 0.2 %; Eosinophils % 0.1 %; Hematocrit 45.3 % (37.5-50.1); Hemoglobin 13.7 g/dL (12.9-16.9); Immature Granulocytes % 0.6 % (0-4); Lymphocytes # 0.4 K/mcL (0.6-4.6); Lymphocytes % 2.9 %; Mean Corpuscular HGB Conc 30.2 g/dL (31.6-35.5); Mean Platelet Volume 9.7 fL (9.4-12.4); Monocytes # 0.1 K/mcL (0.0-1.3); Monocytes % 0.7 %; Neutrophils # 12.9 K/mcL (1.6-8.9); Platelet Count 265 K/mcL (140-400); Red Blood Count 4.72 M/mcL (4.19-5.50); Red Cell Distribution Width 12.3 % (11.5-14.5); Segmented Neutrophils % 95.5 %; White Blood Count 13.6 K/mcL (4.3-11.1)
[2021-09-10 01:59] LABS: Estimated Average Glucose 143 mg/dl; Hemoglobin A1C 6.6 %
[2021-09-10 02:15] LABS: Alanine Aminotransferase 17 Units/L (7-52); Albumin 3.7 g/dL (3.5-5.7); Albumin/Globulin Ratio 1.2 (1.1-2.2); Alkaline Phosphatase 61 Units/L (34-104); Aspartate Amino Transferase 10 Units/L (13-39); BUN/Creatinine Ratio 23 (6-26); Bilirubin,Total 0.3 mg/dL (0.3-1.0); Blood Urea Nitrogen 17 mg/dL (8-23); Calcium 8.7 mg/dL (8.6-10.3); Carbon Dioxide 39 mEq/L (23-29); Chloride 93 mEq/L (98-107); Glucose 289 mg/dL (70-105); Magnesium 1.6 mg/dL (1.6-2.6); Osmolality,Calculated 298 (280-300); Phosphorous 2.5 mg/dL (2.7-4.5); Potassium 4.4 mEq/L (3.5-5.1); Sodium 138 mEq/L (136-145); Total Protein 6.7 g/dL (6.4-8.9); eGFR For African Americans > 60 (> 60); eGFR For Non-African Americans > 60 (> 60)
[2021-09-10] MEDS: Ipratropium/Albuterol Neb 3 ML IH SCH ×4 (03:53→21:59)
[2021-09-10] MEDS: *HR* Heparin 5,000 UNIT/ML VIAL SQ SCH ×2 (06:46→17:18)
[2021-09-10] MEDS: Nicotine 21 MG PATCH.TD24 TD SCH ×2 (08:21→10:36)
[2021-09-10] MEDS: Aspirin Enteric Coated 81 MG Tablet PO SCH (08:22)
[2021-09-10] MEDS: Gabapentin 300 MG CAPSULE PO SCH ×2 (08:22→20:43)
[2021-09-10] MEDS: Metoprolol XL (24 HR) Succ 25 MG TAB.ER.24H PO SCH (08:22)
[2021-09-10] MEDS: MethylPREDNISolone 40 MG/ML VIAL IVP SCH ×3 (08:22→23:56)
[2021-09-10] MEDS: Furosemide 40 MG TABLET PO SCH ×2 (08:22→16:58)
[2021-09-10] MEDS: Insulin LISPRO 300 UNITS/3 ML VIAL SUBQ SCH ×4 (08:32→20:45)
[2021-09-10] MEDS ORDERED: Tiotropium 10 INH DOSE IH SCH (10:00)
[2021-09-10] MEDS: Budesonide/Formoterol 160/4.5 1 PUFF INH IH SCH ×2 (10:21→21:59)
[2021-09-10] MEDS: Benzonatate 100 MG CAPSULE PO PRN (16:58)
[2021-09-11] MEDS: Ipratropium/Albuterol Neb 3 ML IH SCH ×4 (03:48→21:13)
[2021-09-11] MEDS: *HR* Heparin 5,000 UNIT/ML VIAL SQ SCH ×2 (05:06→17:15)
[2021-09-11] MEDS: Nicotine 21 MG PATCH.TD24 TD SCH (09:37)
[2021-09-11] MEDS: Benzonatate 100 MG CAPSULE PO PRN ×2 (09:39→17:14)
[2021-09-11] MEDS: Metoprolol XL (24 HR) Succ 25 MG TAB.ER.24H PO SCH (09:39)
[2021-09-11] MEDS: Furosemide 40 MG TABLET PO SCH ×2 (09:39→17:15)
[2021-09-11] MEDS: Aspirin Enteric Coated 81 MG Tablet PO SCH (09:39)
[2021-09-11] MEDS: Gabapentin 300 MG CAPSULE PO SCH ×2 (09:39→19:56)
[2021-09-11] MEDS: Insulin LISPRO 300 UNITS/3 ML VIAL SUBQ SCH ×4 (09:40→19:56)
[2021-09-11] MEDS: MethylPREDNISolone 40 MG/ML VIAL IVP SCH ×2 (09:40→17:14)
[2021-09-11] MEDS: Budesonide/Formoterol 160/4.5 1 PUFF INH IH SCH ×2 (10:02→21:13)
[2021-09-12] MEDS: MethylPREDNISolone 40 MG/ML VIAL IVP SCH ×4 (01:00→23:43)
[2021-09-12 02:32] LABS: Basophils % 0.1 %; Hematocrit 42.3 % (37.5-50.1); Hemoglobin 13.2 g/dL (12.9-16.9); Immature Granulocytes % 0.7 % (0-4); Lymphocytes # 0.8 K/mcL (0.6-4.6); Lymphocytes % 5.5 %; Mean Corpuscular HGB Conc 31.2 g/dL (31.6-35.5); Mean Corpuscular Hemoglobin 29.5 pg (28.0-33.3); Mean Corpuscular Volume 94.4 fL (83.0-100.0); Mean Platelet Volume 9.4 fL (9.4-12.4); Monocytes # 0.5 K/mcL (0.0-1.3); Monocytes % 3.3 %; Neutrophils # 13.3 K/mcL (1.6-8.9); Platelet Count 260 K/mcL (140-400); Red Blood Count 4.48 M/mcL (4.19-5.50); Red Cell Distribution Width 12.1 % (11.5-14.5); Segmented Neutrophils % 90.4 %; White Blood Count 14.8 K/mcL (4.3-11.1)
[2021-09-12 02:54] LABS: BUN/Creatinine Ratio 35 (6-26); Blood Urea Nitrogen 22 mg/dL (8-23); Calcium 8.9 mg/dL (8.6-10.3); Carbon Dioxide 40 mEq/L (23-29); Chloride 94 mEq/L (98-107); Glucose 320 mg/dL (70-105); Osmolality,Calculated 300 (280-300); Potassium 4.9 mEq/L (3.5-5.1); Sodium 137 mEq/L (136-145); eGFR For African Americans > 60 (> 60); eGFR For Non-African Americans > 60 (> 60)
[2021-09-12] MEDS: Ipratropium/Albuterol Neb 3 ML IH SCH ×4 (04:21→20:11)
[2021-09-12] MEDS: *HR* Heparin 5,000 UNIT/ML VIAL SQ SCH ×2 (05:33→16:50)
[2021-09-12] MEDS: Budesonide/Formoterol 160/4.5 1 PUFF INH IH SCH ×2 (08:08→20:11)
[2021-09-12] MEDS: Nicotine 21 MG PATCH.TD24 TD SCH (08:21)
[2021-09-12] MEDS: Aspirin Enteric Coated 81 MG Tablet PO SCH (08:22)
[2021-09-12] MEDS: Insulin LISPRO 300 UNITS/3 ML VIAL SUBQ SCH ×4 (08:22→21:05)
[2021-09-12] MEDS: Gabapentin 300 MG CAPSULE PO SCH ×2 (08:22→21:05)
[2021-09-12] MEDS: Metoprolol XL (24 HR) Succ 25 MG TAB.ER.24H PO SCH (08:22)
[2021-09-12] MEDS: Furosemide 40 MG TABLET PO SCH ×2 (08:22→16:50)
[2021-09-12] MEDS ORDERED: Azithromycin 500 MG in 0.9 % Sodium Chloride 250 ML IVPB ONE (10:20)
[2021-09-13 01:59] LABS: Basophils % 0.1 %; Hematocrit 42.9 % (37.5-50.1); Hemoglobin 13.3 g/dL (12.9-16.9); Immature Granulocytes % 0.9 % (0-4); Lymphocytes # 0.6 K/mcL (0.6-4.6); Lymphocytes % 5.5 %; Mean Corpuscular Hemoglobin 29.2 pg (28.0-33.3); Mean Corpuscular Volume 94.3 fL (83.0-100.0); Mean Platelet Volume 9.5 fL (9.4-12.4); Monocytes # 0.3 K/mcL (0.0-1.3); Monocytes % 2.9 %; Neutrophils # 10.5 K/mcL (1.6-8.9); Platelet Count 256 K/mcL (140-400); Red Blood Count 4.55 M/mcL (4.19-5.50); Red Cell Distribution Width 12.1 % (11.5-14.5); Segmented Neutrophils % 90.6 %; White Blood Count 11.6 K/mcL (4.3-11.1)
[2021-09-13 02:19] LABS: BUN/Creatinine Ratio 28 (6-26); Blood Urea Nitrogen 21 mg/dL (8-23); Calcium 8.9 mg/dL (8.6-10.3); Carbon Dioxide 42 mEq/L (23-29); Chloride 91 mEq/L (98-107); Glucose 360 mg/dL (70-105); Osmolality,Calculated 298 (280-300); Potassium 4.9 mEq/L (3.5-5.1); Sodium 135 mEq/L (136-145); eGFR For African Americans > 60 (> 60); eGFR For Non-African Americans > 60 (> 60)
[2021-09-13] MEDS: Ipratropium/Albuterol Neb 3 ML IH SCH ×4 (04:20→22:52)
[2021-09-13] MEDS: *HR* Heparin 5,000 UNIT/ML VIAL SQ SCH ×2 (06:15→16:51)
[2021-09-13] MEDS: Aspirin Enteric Coated 81 MG Tablet PO SCH (08:54)
[2021-09-13] MEDS: Gabapentin 300 MG CAPSULE PO SCH ×2 (08:54→20:36)
[2021-09-13] MEDS: Furosemide 40 MG TABLET PO SCH ×2 (08:54→16:52)
[2021-09-13] MEDS: cefTRIAXone 2,000 MG in 0.9 % Sodium Chloride 20 ML IVP SCH (08:55)
[2021-09-13] MEDS: MethylPREDNISolone 40 MG/ML VIAL IVP SCH ×2 (08:55→16:52)
[2021-09-13] MEDS: Azithromycin 500 MG in 0.9 % Sodium Chloride 250 ML IVPB SCH (08:55)
[2021-09-13] MEDS: Metoprolol XL (24 HR) Succ 25 MG TAB.ER.24H PO SCH (08:55)
[2021-09-13] MEDS: Insulin LISPRO 300 UNITS/3 ML VIAL SUBQ SCH ×4 (08:56→20:36)
[2021-09-13] MEDS: Nicotine 21 MG PATCH.TD24 TD SCH (08:56)
[2021-09-13] MEDS ORDERED: levoFLOXacin 750 MG/150 ML 750 MG/150 ML BAG IVPB SCH (09:00)
[2021-09-13] MEDS ORDERED: Azithromycin 500 MG in 0.9 % Sodium Chloride 250 ML IVPB SCH (09:00)
[2021-09-13] MEDS: Budesonide/Formoterol 160/4.5 1 PUFF INH IH SCH ×2 (10:23→22:52)
[2021-09-14] MEDS: MethylPREDNISolone 40 MG/ML VIAL IVP SCH ×3 (00:11→17:40)
[2021-09-14 01:24] LABS: Basophils % 0.2 %; Hematocrit 43.7 % (37.5-50.1); Hemoglobin 13.9 g/dL (12.9-16.9); Immature Granulocytes % 0.7 % (0-4); Lymphocytes # 0.9 K/mcL (0.6-4.6); Lymphocytes % 6.6 %; Mean Corpuscular HGB Conc 31.8 g/dL (31.6-35.5); Mean Corpuscular Hemoglobin 29.5 pg (28.0-33.3); Mean Corpuscular Volume 92.8 fL (83.0-100.0); Mean Platelet Volume 9.3 fL (9.4-12.4); Monocytes # 0.5 K/mcL (0.0-1.3); Monocytes % 3.6 %; Neutrophils # 11.9 K/mcL (1.6-8.9); Platelet Count 248 K/mcL (140-400); Red Blood Count 4.71 M/mcL (4.19-5.50); Red Cell Distribution Width 12.1 % (11.5-14.5); Segmented Neutrophils % 88.9 %; White Blood Count 13.3 K/mcL (4.3-11.1)
[2021-09-14 01:43] LABS: BUN/Creatinine Ratio 36 (6-26); Blood Urea Nitrogen 27 mg/dL (8-23); Calcium 9.1 mg/dL (8.6-10.3); Carbon Dioxide 42 mEq/L (23-29); Chloride 92 mEq/L (98-107); Glucose 249 mg/dL (70-105); Osmolality,Calculated 295 (280-300); Potassium 4.7 mEq/L (3.5-5.1); Sodium 136 mEq/L (136-145); eGFR For African Americans > 60 (> 60); eGFR For Non-African Americans > 60 (> 60)
[2021-09-14] MEDS: Ipratropium/Albuterol Neb 3 ML IH SCH ×4 (03:26→21:52)
[2021-09-14] MEDS: *HR* Heparin 5,000 UNIT/ML VIAL SQ SCH ×2 (05:52→17:40)
[2021-09-14] MEDS: Insulin LISPRO 300 UNITS/3 ML VIAL SUBQ SCH ×3 (07:55→17:40)
[2021-09-14] MEDS: Azithromycin 500 MG in 0.9 % Sodium Chloride 250 ML IVPB SCH (07:55)
[2021-09-14] MEDS: Nicotine 21 MG PATCH.TD24 TD SCH (07:56)
[2021-09-14] MEDS: Aspirin Enteric Coated 81 MG Tablet PO SCH (07:56)
[2021-09-14] MEDS: Furosemide 40 MG TABLET PO SCH (07:56)
[2021-09-14] MEDS: Gabapentin 300 MG CAPSULE PO SCH ×2 (07:56→20:58)
[2021-09-14] MEDS: cefTRIAXone 2,000 MG in 0.9 % Sodium Chloride 20 ML IVP SCH (07:56)
[2021-09-14] MEDS: Metoprolol XL (24 HR) Succ 25 MG TAB.ER.24H PO SCH (07:57)
[2021-09-14] MEDS: Budesonide/Formoterol 160/4.5 1 PUFF INH IH SCH ×2 (09:58→21:52)
[2021-09-14] MEDS ORDERED: MethylPREDNISolone 40 MG/ML VIAL IVP SCH (12:15)
[2021-09-14] MEDS ORDERED: Insulin LISPRO 300 UNITS/3 ML VIAL SUBQ ONE (12:16)
[2021-09-14] MEDS ORDERED: Insulin LISPRO 300 UNITS/3 ML VIAL SUBQ SCH (12:16)
[2021-09-14] MEDS ORDERED: Insulin DETEMIR 100 UNIT/ML X5UNITS SUBQ SCH (21:00)
[2021-09-15 00:37] LABS: Basophils % 0.2 %; Hematocrit 42.8 % (37.5-50.1); Hemoglobin 13.2 g/dL (12.9-16.9); Immature Granulocytes % 1.1 % (0-4); Lymphocytes # 0.6 K/mcL (0.6-4.6); Lymphocytes % 4.5 %; Mean Corpuscular HGB Conc 30.8 g/dL (31.6-35.5); Mean Corpuscular Hemoglobin 29.1 pg (28.0-33.3); Mean Corpuscular Volume 94.5 fL (83.0-100.0); Mean Platelet Volume 9.7 fL (9.4-12.4); Monocytes # 0.4 K/mcL (0.0-1.3); Monocytes % 3.5 %; Neutrophils # 11.5 K/mcL (1.6-8.9); Platelet Count 248 K/mcL (140-400); Red Blood Count 4.53 M/mcL (4.19-5.50); Red Cell Distribution Width 12.2 % (11.5-14.5); Segmented Neutrophils % 90.7 %; White Blood Count 12.7 K/mcL (4.3-11.1)
[2021-09-15 00:53] LABS: BUN/Creatinine Ratio 34 (6-26); Blood Urea Nitrogen 24 mg/dL (8-23); Calcium 8.7 mg/dL (8.6-10.3); Carbon Dioxide 37 mEq/L (23-29); Chloride 91 mEq/L (98-107); Glucose 382 mg/dL (70-105); Osmolality,Calculated 300 (280-300); Potassium 4.7 mEq/L (3.5-5.1); Sodium 135 mEq/L (136-145); eGFR For African Americans > 60 (> 60); eGFR For Non-African Americans > 60 (> 60)
[2021-09-15] MEDS: Ipratropium/Albuterol Neb 3 ML IH SCH ×2 (03:53→09:25)
[2021-09-15] MEDS: *HR* Heparin 5,000 UNIT/ML VIAL SQ SCH (05:30)
[2021-09-15] MEDS: MethylPREDNISolone 40 MG/ML VIAL IVP SCH (05:30)
[2021-09-15] MEDS: Aspirin Enteric Coated 81 MG Tablet PO SCH (07:47)
[2021-09-15] MEDS: Gabapentin 300 MG CAPSULE PO SCH (07:47)
[2021-09-15] MEDS: Metoprolol XL (24 HR) Succ 25 MG TAB.ER.24H PO SCH (07:48)
[2021-09-15] MEDS: Nicotine 21 MG PATCH.TD24 TD SCH (07:48)
[2021-09-15] MEDS: cefTRIAXone 2,000 MG in 0.9 % Sodium Chloride 20 ML IVP SCH (07:48)
[2021-09-15] MEDS: Insulin LISPRO 300 UNITS/3 ML VIAL SUBQ SCH ×2 (07:49→11:55)
[2021-09-15] MEDS ORDERED: Furosemide 20 MG TABLET PO SCH (08:00)
[2021-09-15] MEDS ORDERED: Insulin DETEMIR 100 UNIT/ML X5UNITS SUBQ SCH (09:00)
[2021-09-15] MEDS: Budesonide/Formoterol 160/4.5 1 PUFF INH IH SCH (09:25)
[2021-09-15 10:45] VITALS: BP 136/79; PULSE 88; TEMP 98.3
[2021-09-15 11:41] VITALS: O2SAT 93
== END 2021-09-15 13:20 | disposition home or self-care (01) | DRG 193 ==
LOC: 2ANU 16:09 → EMEROOARM 16:09 → 2ANU 21:09
PROVIDERS: ADMIT Family Medicine; ATTEND Family Medicine

== ENCOUNTER 2022-01-11 11:47 | Observation (INO) ==
[2022-01-11 13:51] LABS: Basophils # 0.1 K/mcL (0.0-0.2); Basophils % 0.4 %; Eosinophils # 0.5 K/mcL (0.0-0.6); Eosinophils % 4.1 %; Hematocrit 46.5 % (37.5-50.1); Hemoglobin 14.3 g/dL (12.9-16.9); Immature Granulocytes % 0.3 % (0-4); Lymphocytes % 16.1 %; Mean Corpuscular HGB Conc 30.8 g/dL (31.6-35.5); Mean Corpuscular Hemoglobin 28.3 pg (28.0-33.3); Mean Corpuscular Volume 91.9 fL (83.0-100.0); Mean Platelet Volume 9.3 fL (9.4-12.4); Monocytes # 0.8 K/mcL (0.0-1.3); Monocytes % 6.3 %; Neutrophils # 9.1 K/mcL (1.6-8.9); Platelet Count 224 K/mcL (140-400); Red Blood Count 5.06 M/mcL (4.19-5.50); Red Cell Distribution Width 13.2 % (11.5-14.5); Segmented Neutrophils % 72.8 %; White Blood Count 12.5 K/mcL (4.3-11.1)
[2022-01-11 14:16] LABS: Alanine Aminotransferase 94 Units/L (7-52); Albumin 3.9 g/dL (3.5-5.7); Albumin/Globulin Ratio 1.4 (1.1-2.2); Alkaline Phosphatase 83 Units/L (34-104); Aspartate Amino Transferase 17 Units/L (13-39); BUN/Creatinine Ratio 22 (6-26); Bilirubin,Direct 0.1 mg/dL (0.0-0.2); Bilirubin,Indirect 0.3 mg/dL (0.0-1.0); Bilirubin,Total 0.4 mg/dL (0.3-1.0); Blood Urea Nitrogen 15 mg/dL (8-23); Calcium 9.2 mg/dL (8.6-10.3); Carbon Dioxide 39 mEq/L (23-29); Chloride 91 mEq/L (98-107); Globulin 2.7 g/dL (2.4-3.5); Glucose 138 mg/dL (70-105); Lipase 39 Units/L (11-82); Osmolality,Calculated 283 (280-300); Sodium 135 mEq/L (136-145); Total Protein 6.6 g/dL (6.4-8.9); Troponin I < 0.03 ng/mL (< 0.04)
[2022-01-11] MEDS ORDERED: Morphine Sulfate 2 MG/ML SYRINGE IVP ONE (14:30)
[2022-01-11] MEDS ORDERED: Iopamidol - 370 500 ML MLS IVP ONE (14:30)
[2022-01-11] MEDS ORDERED: 0.9 % Sodium Chloride 1,000 ML IVC ONE (16:40)
[2022-01-11 17:03] LABS: Chol/HDL Ratio 3.5 (0-4.9); Cholesterol 142 mg/dL (< 200); Ethanol < 10 mg/dL (Less than 10); HDL Cholesterol 41 mg/dL (40-59); LDL Cholesterol,Calculated 80 mg/dL (< 100); Triglycerides 105 mg/dL (< 150)
[2022-01-11] MEDS ORDERED: Naloxone 0.4 MG/ML INJ IVP PRN (17:18)
[2022-01-11] MEDS ORDERED: Mag Hydrox/Al Hydrox/Simeth 30 ML UDC PO PRN (17:18)
[2022-01-11] MEDS ORDERED: Acetaminophen 325 MG TABLET PO PRN (17:18)
[2022-01-11] MEDS ORDERED: Ondansetron 4 MG/2 ML VIAL IVP PRN (17:18)
[2022-01-11] MEDS ORDERED: Melatonin 3 MG TABLET PO PRN (17:18)
[2022-01-11] MEDS ORDERED: Ipratropium/Albuterol Neb 3 ML IH PRN (17:22)
[2022-01-11] MEDS ORDERED: D5% in Water 1,000 ML IVC PRN (17:23)
[2022-01-11] MEDS ORDERED: Dextrose Gel 15 GM/37.5 ML TUBE PO PRN ×2 (17:23)
[2022-01-11] MEDS ORDERED: *HR* Dextrose 50 % in Water (Syg) 50 ML SYRINGE IVP PRN (17:23)
[2022-01-11] MEDS: Nicotine 14 MG PATCH.TD24 TD SCH (17:51)
[2022-01-11] MEDS: Insulin LISPRO 300 UNITS/3 ML VIAL SUBQ SCH (18:44)
[2022-01-11] MEDS: 0.9 % Sodium Chloride 1,000 ML IVC SCH (19:55)
[2022-01-11 23:17] LABS: Bilirubin,Urine Negative (Negative); Blood,Urine Negative (Negative); Clarity,Urine Clear (Clear); Color,Urine Yellow (Yellow); Glucose,Urine (UA) Normal (Normal); Ketones,Urine 20 mg/dL (Negative); Leukocyte Esterase,Urine Negative (Negative); Nitrite,Urine Negative (Negative); PH,Urine 6.5 pH Units (5.0-8.0); Protein,Urine Trace mg/dL (Neg-Trace); Specific Gravity,Urine > 1.030 (1.010-1.025); Urobilinogen,Urine Normal (Normal)
[2022-01-12] MEDS: Insulin LISPRO 300 UNITS/3 ML VIAL SUBQ SCH ×4 (04:26→20:33)
[2022-01-12] MEDS: 0.9 % Sodium Chloride 1,000 ML IVC SCH (04:27)
[2022-01-12 05:10] LABS: Basophils # 0.1 K/mcL (0.0-0.2); Basophils % 0.6 %; Eosinophils # 0.5 K/mcL (0.0-0.6); Eosinophils % 4.9 %; Hematocrit 41.1 % (37.5-50.1); Immature Granulocytes % 0.3 % (0-4); Lymphocytes # 1.6 K/mcL (0.6-4.6); Mean Corpuscular HGB Conc 30.4 g/dL (31.6-35.5); Mean Corpuscular Hemoglobin 28.1 pg (28.0-33.3); Mean Corpuscular Volume 92.4 fL (83.0-100.0); Mean Platelet Volume 9.4 fL (9.4-12.4); Monocytes # 0.7 K/mcL (0.0-1.3); Monocytes % 7.3 %; Neutrophils # 6.7 K/mcL (1.6-8.9); Platelet Count 182 K/mcL (140-400); Red Blood Count 4.45 M/mcL (4.19-5.50); Red Cell Distribution Width 13.2 % (11.5-14.5); Segmented Neutrophils % 69.9 %; White Blood Count 9.6 K/mcL (4.3-11.1)
[2022-01-12 05:12] LABS: Hemoglobin 12.5 g/dL (12.9-16.9)
[2022-01-12 05:28] LABS: Amylase 18 Units/L (29-103); Lipase 25 Units/L (11-82)
[2022-01-12 05:31] LABS: Alanine Aminotransferase 65 Units/L (7-52); Albumin 3.2 g/dL (3.5-5.7); Albumin/Globulin Ratio 1.3 (1.1-2.2); Alkaline Phosphatase 67 Units/L (34-104); Aspartate Amino Transferase 13 Units/L (13-39); BUN/Creatinine Ratio 22 (6-26); Bilirubin,Direct 0.2 mg/dL (0.0-0.2); Bilirubin,Indirect 0.2 mg/dL (0.0-1.0); Bilirubin,Total 0.4 mg/dL (0.3-1.0); Blood Urea Nitrogen 11 mg/dL (8-23); Calcium 8.5 mg/dL (8.6-10.3); Carbon Dioxide 40 mEq/L (23-29); Chloride 96 mEq/L (98-107); Globulin 2.5 g/dL (2.4-3.5); Glucose 100 mg/dL (70-105); Magnesium 1.8 mg/dL (1.6-2.6); Osmolality,Calculated 285 (280-300); Potassium 4.3 mEq/L (3.5-5.1); Sodium 138 mEq/L (136-145); Total Protein 5.7 g/dL (6.4-8.9)
[2022-01-12 05:34] LABS: Estimated Average Glucose 146 mg/dl; Hemoglobin A1C 6.7 %
[2022-01-12 05:36] LABS: INR 1.1; Prothrombin Time 12.4 Seconds (9.4-12.1)
[2022-01-12] MEDS: Nicotine 14 MG PATCH.TD24 TD SCH (08:24)
[2022-01-12] MEDS ORDERED: Morphine Sulfate 2 MG/ML SYRINGE IVP PRN (08:48)
[2022-01-12] MEDS ORDERED: 0.9 % Sodium Chloride 1,000 ML IVC SCH (10:15)
[2022-01-12] MEDS ORDERED: Iopamidol - 370 500 ML MLS IVP ONE (12:40)
[2022-01-12] MEDS: Metoprolol XL (24 HR) Succ 25 MG TAB.ER.24H PO SCH (12:51)
[2022-01-12] MEDS ORDERED: Albuterol 2.5 MG/3 ML NEBULIZER IH PRN (14:50)
[2022-01-12] MEDS: Budesonide/Formoterol 160/4.5 1 PUFF INH IH SCH (20:11)
[2022-01-12] MEDS: Gabapentin 300 MG CAPSULE PO SCH (20:34)
[2022-01-13 03:43] LABS: Basophils % 0.4 %; Eosinophils # 0.4 K/mcL (0.0-0.6); Eosinophils % 4.3 %; Hematocrit 40.8 % (37.5-50.1); Hemoglobin 12.5 g/dL (12.9-16.9); Immature Granulocytes % 0.4 % (0-4); Lymphocytes # 1.5 K/mcL (0.6-4.6); Lymphocytes % 15.3 %; Mean Corpuscular HGB Conc 30.6 g/dL (31.6-35.5); Mean Corpuscular Hemoglobin 28.3 pg (28.0-33.3); Mean Corpuscular Volume 92.3 fL (83.0-100.0); Mean Platelet Volume 9.6 fL (9.4-12.4); Monocytes # 0.7 K/mcL (0.0-1.3); Monocytes % 6.7 %; Neutrophils # 7.1 K/mcL (1.6-8.9); Platelet Count 208 K/mcL (140-400); Red Blood Count 4.42 M/mcL (4.19-5.50); Red Cell Distribution Width 13.1 % (11.5-14.5); Segmented Neutrophils % 72.9 %; White Blood Count 9.7 K/mcL (4.3-11.1)
[2022-01-13 04:07] LABS: Alanine Aminotransferase 51 Units/L (7-52); Albumin 3.3 g/dL (3.5-5.7); Albumin/Globulin Ratio 1.3 (1.1-2.2); Alkaline Phosphatase 62 Units/L (34-104); Aspartate Amino Transferase 10 Units/L (13-39); BUN/Creatinine Ratio 13 (6-26); Bilirubin,Direct 0.1 mg/dL (0.0-0.2); Bilirubin,Indirect 0.2 mg/dL (0.0-1.0); Bilirubin,Total 0.3 mg/dL (0.3-1.0); Blood Urea Nitrogen 6 mg/dL (8-23); Calcium 8.8 mg/dL (8.6-10.3); Carbon Dioxide 38 mEq/L (23-29); Chloride 99 mEq/L (98-107); Globulin 2.5 g/dL (2.4-3.5); Glucose 185 mg/dL (70-105); Osmolality,Calculated 290 (280-300); Potassium 3.9 mEq/L (3.5-5.1); Sodium 139 mEq/L (136-145); Total Protein 5.8 g/dL (6.4-8.9)
[2022-01-13] MEDS: Insulin LISPRO 300 UNITS/3 ML VIAL SUBQ SCH ×4 (08:31→20:12)
[2022-01-13] MEDS: Budesonide/Formoterol 160/4.5 1 PUFF INH IH SCH ×2 (09:48→22:14)
[2022-01-13] MEDS: Tiotropium 10 INH DOSE IH SCH (09:48)
[2022-01-13] MEDS: Nicotine 14 MG PATCH.TD24 TD SCH (10:07)
[2022-01-13] MEDS: Furosemide 40 MG TABLET PO SCH ×2 (10:07→17:50)
[2022-01-13] MEDS: Metoprolol XL (24 HR) Succ 25 MG TAB.ER.24H PO SCH (10:08)
[2022-01-13] MEDS: Gabapentin 300 MG CAPSULE PO SCH ×2 (10:08→20:21)
[2022-01-14] MEDS: Tiotropium 10 INH DOSE IH SCH (07:46)
[2022-01-14] MEDS: Budesonide/Formoterol 160/4.5 1 PUFF INH IH SCH ×2 (07:46→21:24)
[2022-01-14] MEDS: Metoprolol XL (24 HR) Succ 25 MG TAB.ER.24H PO SCH (08:03)
[2022-01-14] MEDS: Nicotine 14 MG PATCH.TD24 TD SCH (08:03)
[2022-01-14] MEDS: Furosemide 40 MG TABLET PO SCH (08:03)
[2022-01-14] MEDS: Gabapentin 300 MG CAPSULE PO SCH ×2 (08:03→20:28)
[2022-01-14] MEDS: Insulin LISPRO 300 UNITS/3 ML VIAL SUBQ SCH ×4 (08:21→20:56)
[2022-01-14] MEDS ORDERED: *HR* OxyCODONE Immed Rel 5 MG TABLET PO PRN (13:38)
[2022-01-14] MEDS ORDERED: 0.9 % Sodium Chloride 1,000 ML IVC SCH (13:45)
[2022-01-15] MEDS: Budesonide/Formoterol 160/4.5 1 PUFF INH IH SCH (08:05)
[2022-01-15] MEDS: Tiotropium 10 INH DOSE IH SCH (08:05)
[2022-01-15] MEDS ORDERED: Sennosides/Docusate Sodium TABLET PO ONE (08:21)
[2022-01-15] MEDS: Insulin LISPRO 300 UNITS/3 ML VIAL SUBQ SCH ×2 (08:40→11:50)
[2022-01-15] MEDS: Gabapentin 300 MG CAPSULE PO SCH (08:47)
[2022-01-15] MEDS: Nicotine 14 MG PATCH.TD24 TD SCH (08:48)
[2022-01-15] MEDS: Metoprolol XL (24 HR) Succ 25 MG TAB.ER.24H PO SCH (08:48)
[2022-01-15 09:09] LABS: Immunoglobulin G Subclass 1 375 mg/dL (240-1118); Immunoglobulin G Subclass 2 185 mg/dL (124-549); Immunoglobulin G Subclass 3 22 mg/dL (21-134); Immunoglobulin G Subclass 4 82 mg/dL (1-123)
[2022-01-15 15:09] VITALS: BP 132/71; PULSE 83; TEMP 98.1; O2SAT 92
== END 2022-01-15 17:52 | disposition home or self-care (01) ==
LOC: EMEROOARM 11:47 → 3ANU 11:47 → SUATTDRO 16:45 → 3ANU 21:00
PROVIDERS: ADMIT Internal Medicine; ATTEND Internal Medicine